=== PATIENT | male | born 1930 | race Caucasian/White ===

== ENCOUNTER 2017-02-07 19:21 | Emergency (ER) | payer MEDICARE, BC ==
--- NOTE | 2017-02-07 21:06 | EDM.PDOC ---
ED HISTORY OF PRESENT ILLNESS - General Chief Complaint: Chest Pain Stated Complaint: CHEST PAINS Time Seen by Provider: 02/07/17 20:02 Source: Reports: Patient History Limitations: Reports: No limitations - History of Present Illness INITIAL COMMENTS - FREE TEXT/NARRATIVE: History of present illness: [6-year-old male presenting with epigastric pressure of about 8 hours duration with belching. He had no shortness of breath nausea vomiting or diaphoresis with this. Here in the emergency room he is asymptomatic and has resolved but he thought he should have it checked as he does have a cardiac history. He has sublingual nitroglycerin but did not use it. He's had no fevers chills sweats cough or cold symptoms of late no constipation diarrhea or dysuria.] Review of systems: As per history of present illness and below otherwise all systems reviewed and negative. Past medical history: As per history of present illness and as reviewed below otherwise noncontributory. Surgical history: As per history of present illness and as reviewed below otherwise noncontributory. Social history: No reported history of drug or alcohol abuse. Family history: As per history of present illness and as reviewed below otherwise noncontributory. Physical exam: HEENT: Atraumatic, normocephalic, pupils reactive, negative for conjunctival pallor or scleral icterus, mucous membranes moist, throat clear, neck supple, nontender, trachea midline. Lungs: Clear to auscultation, breath sounds equal bilaterally, chest nontender. Heart: S1S2, IRR, negative for clicks, rubs, or JVD. Abdomen: Soft, nondistended, nontender. Negative for masses or hepatosplenomegaly. Negative for costovertebral tenderness. Pelvis: Stable nontender. Genitourinary: Deferred. Rectal: Deferred. Extremities: Atraumatic, negative for cords or calf pain. Neurovascular unremarkable. Neuro: Awake, alert, oriented. Motor and sensory unremarkable throughout. Exam nonfocal. Diagnostics: [EKG shows A. fib with a controlled rate. There is no current of injury or ischemia noted troponin is negative CBC and complete panel panel were also obtained and nothing significant was seen. Chest x-ray shows I believe evidence for mild cardiomegaly and chronic changes so nothing acute.] Therapeutics: [] Impression: [Epigastric abdominal pain resolved I doubt this is cardiac equivalent] Plan: [Patient was discharged on in good condition. I discussed with him and reviewed with him the use of his sublingual nitroglycerin.] Definitive disposition and diagnosis as appropriate pending reevaluation and review of above. - Related Data Allergies/ADRs: Allergies Allergy/AdvReac Type Severity Reaction Status Date / Time No Known Allergies Allergy Verified 02/07/17 19:33 Home Meds: Home Meds Allopurinol [Allopurinol] 100 mg PO DAILY 05/17/14 [History] Finasteride [Finasteride] 5 mg PO DAILY 05/17/14 [History] Furosemide [Furosemide] 10 mg PO DAILY 05/17/14 [History] Lisinopril [Lisinopril] 10 mg PO DAILY 05/17/14 [History] Omeprazole [Omeprazole] 20 mg PO BEDTIME 05/17/14 [History] Pravastatin Sodium [Pravastatin Sodium] 80 mg PO BEDTIME 05/17/14 [History] Warfarin [Coumadin] 2.5 mg PO DAILY 05/17/14 [History] Nitroglycerin [Nitrostat] 0.4 mg SL ASDIRECTED PRN 08/16/14 [History] Pindolol [Visken] 10 mg PO BID 08/16/14 [History] Past Medical History HEENT History: Reports: Cataract, Hard of hearing, Other (see below) Other HEENT History: blood vein broke in left eye - getting an injection in eye at [place] Cardiovascular History: Reports: Arrhythmia, Bypass, CAD, High cholesterol, Hypertension, [place], Other (see below) Other Cardiovascular History: chronic ischemic heart disease Respiratory History: Reports: Other (see below) Other Respiratory History: asbestos exposure Genitourinary History: Reports: Prostate disorder, Other (see below) Other Genitourinary History: pain with movement in right kidney area for past 6 months Musculoskeletal History: Reports: Fracture, Gout, Osteoarthritis Neurological History: Reports: Neuropathy, diabetic Endocrine/Metabolic History: Reports: Diabetes, type II Hematologic History: Reports: Anticoagulation therapy Oncologic (Cancer) History: Reports: Basal cell carcinoma Dermatologic History: 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 - Past Surgical History HEENT Surgical History: Reports: Cataract surgery Cardiovascular Surgical History: Reports: Coronary artery bypass, Other (see below) Other Cardiovascular Surgeries/Procedures: CABG x4 GI Surgical History: Reports: Cholecystectomy Musculoskeletal Surgical History: Reports: Hip replacement, Other (see below) Other Musculoskeletal Surgeries/Procedures:: tendonitis right hip Social & Family History - Family History Family Medical History: Noncontributory - Tobacco Use Smoking Status *Q: Never Smoker - Caffeine Use Caffeine Use: Reports: None - Alcohol Use Days Per Week of Alcohol Use: 0 - Recreational Drug Use Recreational Drug Use: No - Living Situation & Occupation Living situation: Reports: Occupation: retired (lives with , son is nearby.) ED ROS GENERAL - Review of Systems Review Of Systems: ROS reveals no pertinent complaints other than HPI. ED EXAM, GENERAL - Physical Exam Exam: See Below Course - Vital Signs Last Recorded V/S: Last Vital Signs Temp 37.1 C 02/07/17 19:46 Pulse Resp 12 02/07/17 19:47 BP 186/99 H 02/07/17 19:47 Pulse Ox 95 02/07/17 19:47 - Orders/Labs/Meds Orders: Active Orders 24 hr Category Date Time Status EKG Documentation Completion [RC] ASDIRECTED Care 02/07/17 20:04 Active Chest 1V Frontal [CR] Stat Exams 02/07/17 20:03 Taken EKG 12 Lead [EK] Stat Ther 02/07/17 20:04 Ordered Labs: Laboratory Tests 02/07/17 02/07/17 02/07/17 Range/Units 20:12 20:12 20:12 WBC 6.8 (4.5-11.0) K/uL RBC 4.32 (4.30-5.90) M/uL Hgb 13.4 (12.0-15.0) g/dL Hct 41.2 (40.0-54.0) % MCV 95 (80-98) fL MCH 31 (27-31) pg MCHC 33 (32-36) % Plt Count 149 L (150-400) K/uL Neut % (Auto) 58 (36-66) % Lymph % (Auto) 30 (24-44) % [place] % (Auto) 10 H (2-6) % Eos % (Auto) 2 (2-4) % Baso % (Auto) 1 (0-1) % PT 28.0 H (9.5-12.0) sec INR 2.57 H (0.80-1.20) Sodium 139 L (140-148) mmol/L Potassium 4.7 (3.6-5.2) mmol/L Chloride 104 (100-108) mmol/L Carbon Dioxide 26 (21-32) mmol/L Anion Gap 13.7 (5.0-14.0) mmol/L BUN 28 H (7-18) mg/dL Creatinine 1.3 (0.8-1.3) mg/dL Est Cr Clr Drug Dosing 37.49 mL/min Estimated GFR (MDRD) 52 L (>60) Glucose 119 H (74-106) mg/dL Calcium 8.4 L (8.5-10.1) mg/dL Total Bilirubin 0.4 (0.2-1.0) mg/dL AST 21 (15-37) U/L ALT 32 (12-78) U/L Alkaline Phosphatase 58 (46-116) U/L Troponin I < 0.017 (0.000-0.056) ng/mL Total Protein 6.6 (6.4-8.2) g/dL Albumin 3.9 (3.4-5.0) g/dL Globulin 2.7 (2.3-3.5) g/dL Albumin/Globulin Ratio 1.4 (1.2-2.2) Urine Color Urine Appearance Urine pH (4.5-8.0) Ur Specific [place] (1.008-1.030) Urine Protein (NEGATIVE) mg/dL Urine Glucose (UA) (NEGATIVE) mg/dL Urine Ketones (NEGATIVE) mg/dL Urine Occult Blood (NEGATIVE) Urine Nitrite (NEGAITVE) Urine Bilirubin (NEGATIVE) Urine Urobilinogen (NORMAL) mg/dL Ur Leukocyte Esterase (NEGATIVE) Urine RBC (0-5) Urine WBC (0-5) Ur Epithelial Cells Amorphous Sediment Urine Bacteria Urine Mucus 02/07/17 Range/Units 20:36 WBC (4.5-11.0) K/uL RBC (4.30-5.90) M/uL Hgb (12.0-15.0) g/dL Hct (40.0-54.0) % MCV (80-98) fL MCH (27-31) pg MCHC (32-36) % Plt Count (150-400) K/uL Neut % (Auto) (36-66) % Lymph % (Auto) (24-44) % [place] % (Auto) (2-6) % Eos % (Auto) (2-4) % Baso % (Auto) (0-1) % PT (9.5-12.0) sec INR (0.80-1.20) Sodium (140-148) mmol/L Potassium (3.6-5.2) mmol/L Chloride (100-108) mmol/L Carbon Dioxide (21-32) mmol/L Anion Gap (5.0-14.0) mmol/L BUN (7-18) mg/dL Creatinine (0.8-1.3) mg/dL Est Cr Clr Drug Dosing mL/min Estimated GFR (MDRD) (>60) Glucose (74-106) mg/dL Calcium (8.5-10.1) mg/dL Total Bilirubin (0.2-1.0) mg/dL AST (15-37) U/L ALT (12-78) U/L Alkaline Phosphatase (46-116) U/L Troponin I (0.000-0.056) ng/mL Total Protein (6.4-8.2) g/dL Albumin (3.4-5.0) g/dL Globulin (2.3-3.5) g/dL Albumin/Globulin Ratio (1.2-2.2) Urine Color Yellow Urine Appearance Clear Urine pH 6.0 (4.5-8.0) Ur Specific [place] 1.020 (1.008-1.030) Urine Protein Negative (NEGATIVE) mg/dL Urine Glucose (UA) Normal (NEGATIVE) mg/dL Urine Ketones Negative (NEGATIVE) mg/dL Urine Occult Blood Moderate (NEGATIVE) Urine Nitrite Negative (NEGAITVE) Urine Bilirubin Negative (NEGATIVE) Urine Urobilinogen Normal (NORMAL) mg/dL Ur Leukocyte Esterase Negative (NEGATIVE) Urine RBC 5-10 H (0-5) Urine WBC 5-10 H (0-5) Ur Epithelial Cells Few Amorphous Sediment Not seen Urine Bacteria Moderate Urine Mucus Few Departure - Departure Time of Disposition: 21:05 Disposition: Home, Self-Care 01 Condition: good Clinical Impression: Epigastric abdominal pain Forms: ED Department Discharge Additional Instructions: Please remember to use her sublingual nitroglycerin for any chest pain or pressure that you have infusion postoperatively and her pain does not resolve please return to the restroom. Follow up with her doctor as planned and were always happy to see if you have any problems or concerns - My Orders Last 24 Hours: My Active Orders 02/07/17 20:03 Chest 1V Frontal [CR] Stat 02/07/17 20:04 EKG Documentation Completion [RC] ASDIRECTED EKG 12 Lead [EK] Stat - Assessment/Plan Last 24 Hours: My Active Orders 02/07/17 20:03 Chest 1V Frontal [CR] Stat 02/07/17 20:04 EKG Documentation Completion [RC] ASDIRECTED EKG 12 Lead [EK] Stat
[2017-02-07 21:23] VITALS: BP 157/94
--- NOTE | 2017-02-08 09:26 | CR ---
Portable chest Comparison: May 2014. Intact sternal wires are demonstrated. There is mild cardiac enlargement. The vascular structures ar e within normal limits. There are no infiltrates or effusions. There is calcified pleural plaque on the left which is unchanged. Impression: 1. Stable exam. No acute findings.
== END 2017-02-07 21:24 | disposition home or self-care (01) ==
LOC: JP.ED 19:21
DX: R10.13 Epigastric pain (principal); I25.810 Atherosclerosis of coronary artery bypass graft(s) without angina pectoris; E78.00 Pure hypercholesterolemia, unspecified; I10 Essential (primary) hypertension; I25.2 Old myocardial infarction; E11.40 Type 2 diabetes mellitus with diabetic neuropathy, unspecified; Z79.01 Long term (current) use of anticoagulants; Z79.899 Other long term (current) drug therapy; Z98.49 Cataract extraction status, unspecified eye; Z90.49 Acquired absence of other specified parts of digestive tract
CPT/HCPCS: 36415; 71010; 71010-26; 80053; 81001; 84484; 85025; 85610; 93005; 93010; 99283; 99284-25

== ENCOUNTER 2017-12-07 19:56 | Inpatient (IN) | payer MEDICARE, BC ==
[2017-12-07] MEDS ORDERED: Sodium Chloride 0.9% 1,000 ML IV SCH ×4 (20:00→23:05)
[2017-12-07] MEDS ORDERED: Ondansetron 4 MG/2 ML SDV IVPUSH ONE (20:00)
--- NOTE | 2017-12-07 20:44 | EDM.PDOC ---
ED HPI GENERAL MEDICAL PROBLEM - General Chief Complaint: Respiratory Problem Stated Complaint: CONGESTED Time Seen by Provider: 12/07/17 20:39 Source of Information: Reports: Patient, EMS, Family History Limitations: Reports: No Limitations - History of Present Illness INITIAL COMMENTS - FREE TEXT/NARRATIVE: pt is very congested sounding. He is vomiting and this seemes to be stimulated with the coughing. He smells of urine incontinence. Onset: Gradual, Other (Pt has been sick for the past 2-3 days. He thinks his ankle swelling is about the same. ) Duration: Day(s): Location: Reports: Chest, Other (low o2 sats. ) Associated Symptoms: Reports: Cough, Fever/Chills, Nausea/Vomiting, Shortness of Breath, Other (Pt is very wheezy. ) - Related Data Allergies Allergy/AdvReac Type Severity Reaction Status Date / Time No Known Allergies Allergy Verified 02/07/17 19:33 Home Meds: Home Meds Allopurinol [Allopurinol] 100 mg PO DAILY 05/17/14 [History] Finasteride [Finasteride] 5 mg PO DAILY 05/17/14 [History] Furosemide [Furosemide] 20 mg PO DAILY 05/17/14 [History] Lisinopril [Lisinopril] 10 mg PO DAILY 05/17/14 [History] Omeprazole [Omeprazole] 20 mg PO BEDTIME 05/17/14 [History] Pravastatin Sodium [Pravastatin Sodium] 80 mg PO BEDTIME 05/17/14 [History] Warfarin [Coumadin] 2.5 mg PO DAILY 05/17/14 [History] Nitroglycerin [Nitrostat] 0.4 mg SL ASDIRECTED PRN 08/16/14 [History] Pindolol [Visken] 10 mg PO BID 08/16/14 [History] Carbidopa/Levodopa [Carbidopa-Levodopa 10-100] 1 tab PO DAILY 12/07/17 [History] Past Medical History HEENT History: Reports: Cataract, Hard of Hearing, Other (See Below) Other HEENT History: blood vein broke in left eye - getting an injection in eye at [place] Cardiovascular History: Reports: Arrhythmia, Bypass, CAD, High Cholesterol, Hypertension, [place], Other (See Below) Other Cardiovascular History: chronic ischemic heart disease Respiratory History: Reports: Other (See Below) Other Respiratory History: asbestos exposure Genitourinary History: Reports: Prostate Disorder, Other (See Below) Other Genitourinary History: pain with movement in right kidney area for past 6 months Musculoskeletal History: Reports: Fracture, Gout, Osteoarthritis Neurological History: Reports: Neuropathy, Diabetic Endocrine/Metabolic History: Reports: Diabetes, Type II Hematologic History: Reports: Anticoagulation Therapy Oncologic (Cancer) History: Reports: Basal Cell Carcinoma Dermatologic History: 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 - Past Surgical History HEENT Surgical History: Reports: Cataract Surgery Cardiovascular Surgical History: Reports: Coronary Artery Bypass, Other (See Below) Musculoskeletal Surgical History: Reports: Hip Replacement, Other (See Below) Social & Family History - Family History Family Medical History: Noncontributory - Tobacco Use Smoking Status *Q: Never Smoker - Caffeine Use Caffeine Use: Reports: None - Alcohol Use Days Per Week of Alcohol Use: 0 - Recreational Drug Use Recreational Drug Use: No - Living Situation & Occupation Living situation: Reports: Occupation: Retired ED ROS GENERAL - Review of Systems Review Of Systems: See Below Constitutional: Reports: No Symptoms HEENT: Reports: No Symptoms Respiratory: Reports: Shortness of Breath, Wheezing Cardiovascular: Reports: No Symptoms Endocrine: Reports: No Symptoms GI/Abdominal: Reports: Nausea, Vomiting : Reports: No Symptoms Musculoskeletal: Reports: No Symptoms ED EXAM, GENERAL - Physical Exam Exam: See Below Free Text/Narrative:: pt arrived with marked chest congestion. He is vomiting bile like material. His vomiting is stimulated by the coughing. He has gotten progressively weaker as the day has progressed. Exam Limited By: Respiratory Distress General Appearance: Alert, Moderate Distress, Other (pt has been very rattlly and has been vomiting. ) Ears: Normal TMs Nose: Normal Inspection Throat/Mouth: Normal Inspection Head: Atraumatic Neck: Normal Inspection Respiratory/Chest: Decreased Breath Sounds, Rales, Rhonchi, Wheezing, Other (o2 sats were in the low 80s. ) Cardiovascular: Regular Rate, Rhythm GI/Abdominal: Soft, Non-Tender (Male) Exam: Deferred Rectal (Males) Exam: Deferred Back Exam: Normal Inspection Extremities: Pedal Edema, Other ( Pt has plus 2-3 pitting edema. ) Neurological: Alert, Oriented, Normal Cognition, Other ( Pt is vague with her answers. ) Psychiatric: Flat Affect Course - Vital Signs Last Recorded V/S: Last Vital Signs Temp 37.1 C 12/07/17 20:47 Pulse 100 12/07/17 20:47 Resp 20 12/07/17 20:47 BP 172/86 H 12/07/17 20:47 Pulse Ox 93 L 12/07/17 20:47 - Orders/Labs/Meds Orders: Active Orders 24 hr Category Date Time Status Chest 1V Frontal [CR] Stat Exams 12/07/17 19:59 Taken CULTURE BLOOD [BC] Urgent Lab 12/07/17 20:40 Received CULTURE BLOOD [BC] Urgent Lab 12/07/17 20:55 Received UA W/MICROSCOPIC [URIN] Urgent Lab 12/07/17 20:30 Received Sodium Chloride 0.9% [Normal Saline] 1,000 ml Med 12/07/17 21:15 Active IV ASDIRECTED cefTRIAXone [Rocephin] 1 gm Med 12/07/17 21:30 Ordered Sodium Chloride 0.9% [Normal Saline] 50 ml IV ONETIME Blood Culture x2 Reflex Set [OM.PC] Urgent Oth 12/07/17 20:39 Ordered Medication Orders Sodium Chloride (Normal Saline) 1,000 mls @ 500 mls/hr IV ASDIRECTED [facility] Labs: Laboratory Tests 12/07/17 12/07/17 12/07/17 Range/Units 20:05 20:11 20:11 WBC 8.2 (4.5-11.0) K/uL RBC 4.33 (4.30-5.90) M/uL Hgb 14.2 (12.0-15.0) g/dL Hct 42.0 (40.0-54.0) % MCV 97 (80-98) fL MCH 33 H (27-31) pg MCHC 34 (32-36) % Plt Count 148 L (150-400) K/uL Neut % (Auto) 72 H (36-66) % Lymph % (Auto) 20 L (24-44) % [place] % (Auto) 7 H (2-6) % Eos % (Auto) 0 L (2-4) % Baso % (Auto) 0 (0-1) % PT (9.5-12.0) sec INR (0.80-1.20) Puncture Site Rt.radial ABG pH 7.450 (7.350-7.450) ABG pCO2 29.8 L (35.0-42.0) mmHg ABG pO2 62.8 L (75.0-100.0) mmHg ABG HCO3 20.4 L (22.0-26.0) mmol/L ABG Total CO2 17.8 L (23.0-27.0) mmol/L ABG O2 Saturation 91.8 L (95.0-98.0) % ABG O2 Content 17.8 (15.0-23.0) %vol ABG Base Excess -2.0 mm/L ABG Hemoglobin 14.0 (13.5-18.0) g/dL ABG Oxyhemoglobin 90.4 % ABG Carboxyhemoglobin 0.8 (0.0-1.6) % ABG Methemoglobin 0.7 % Portillo Test Passed O2 Delivery Device Room air Oxygen Flow Rate 2 L Sodium 139 L (140-148) mmol/L Potassium 4.8 (3.6-5.2) mmol/L Chloride 101 (100-108) mmol/L Carbon Dioxide 24 (21-32) mmol/L Anion Gap 18.8 H (5.0-14.0) mmol/L BUN 26 H (7-18) mg/dL Creatinine 1.2 (0.8-1.3) mg/dL Est Cr Clr Drug Dosing 44.19 mL/min Estimated GFR (MDRD) 57 L (>60) Glucose 202 H (74-106) mg/dL Lactic Acid (0.4-2.0) mmol/L Calcium 9.2 (8.5-10.1) mg/dL Total Bilirubin 1.1 H D (0.2-1.0) mg/dL AST 31 (15-37) U/L ALT 16 (12-78) U/L Alkaline Phosphatase 68 (46-116) U/L NT-Pro-B Natriuret Pep (5-450) pg/mL Total Protein 6.8 (6.4-8.2) g/dL Albumin 3.8 (3.4-5.0) g/dL Globulin 3.0 (2.3-3.5) g/dL Albumin/Globulin Ratio 1.3 (1.2-2.2) 12/07/17 12/07/17 12/07/17 Range/Units 20:11 20:17 20:46 WBC (4.5-11.0) K/uL RBC (4.30-5.90) M/uL Hgb (12.0-15.0) g/dL Hct (40.0-54.0) % MCV (80-98) fL MCH (27-31) pg MCHC (32-36) % Plt Count (150-400) K/uL Neut % (Auto) (36-66) % Lymph % (Auto) (24-44) % [place] % (Auto) (2-6) % Eos % (Auto) (2-4) % Baso % (Auto) (0-1) % PT 26.5 H (9.5-12.0) sec INR 2.39 H (0.80-1.20) Puncture Site ABG pH (7.350-7.450) ABG pCO2 (35.0-42.0) mmHg ABG pO2 (75.0-100.0) mmHg ABG HCO3 (22.0-26.0) mmol/L ABG Total CO2 (23.0-27.0) mmol/L ABG O2 Saturation (95.0-98.0) % ABG O2 Content (15.0-23.0) %vol ABG Base Excess mm/L ABG Hemoglobin (13.5-18.0) g/dL ABG Oxyhemoglobin % ABG Carboxyhemoglobin (0.0-1.6) % ABG Methemoglobin % Portillo Test O2 Delivery Device Oxygen Flow Rate L Sodium (140-148) mmol/L Potassium (3.6-5.2) mmol/L Chloride (100-108) mmol/L Carbon Dioxide (21-32) mmol/L Anion Gap (5.0-14.0) mmol/L BUN (7-18) mg/dL Creatinine (0.8-1.3) mg/dL Est Cr Clr Drug Dosing mL/min Estimated GFR (MDRD) (>60) Glucose (74-106) mg/dL Lactic Acid 2.5 H (0.4-2.0) mmol/L Calcium (8.5-10.1) mg/dL Total Bilirubin (0.2-1.0) mg/dL AST (15-37) U/L ALT (12-78) U/L Alkaline Phosphatase (46-116) U/L NT-Pro-B Natriuret Pep 3357 H (5-450) pg/mL Total Protein (6.4-8.2) g/dL Albumin (3.4-5.0) g/dL Globulin (2.3-3.5) g/dL Albumin/Globulin Ratio (1.2-2.2) Meds: Medications Generic Name Dose Route Start Last Admin Trade Name Freq PRN Reason Stop Dose Admin Sodium Chloride 1,000 mls @ 500 mls/hr 12/07/17 21:15 Normal Saline IV ASDIRECTED SANG Discontinued Medications Generic Name Dose Route Start Last Admin Trade Name Freq PRN Reason Stop Dose Admin Sodium Chloride 1,000 mls @ 500 mls/hr 12/07/17 20:00 Normal Saline IV ASDIRECTED SANG Sodium Chloride 1,000 mls @ 150 mls/hr 12/07/17 20:45 12/07/17 20:50 Normal Saline IV 150 mls/hr ASDIRECTED SANG Administration Ondansetron HCl 4 mg 12/07/17 20:00 12/07/17 20:48 Zofran IVPUSH 12/07/17 20:01 4 mg ONETIME ONE Administration - Re-Assessments/Exams Free Text/Narrative Re-Assessment/Exam: 12/07/17 21:35 pt had neg influ a and b. his wbc is not sig elevated. His lactic acid is borderline. He has an elevated bnp so it is difficult to give him a large bolus of fluid rapidly. His vital signs are staying good, His chest xray revealed a patchy pneumonia. Blood cultures were drawn. Departure - Departure Time of Disposition: 21:38 Disposition: Admitted As Inpatient 67 Condition: Fair Clinical Impression: Bilateral pneumonia, Elevated brain natriuretic peptide (BNP) level, Elevated lactic acid level - Discharge Information Referrals: PCP,None [Primary Care Provider] - Forms: ED Department Discharge Care Plan Goals: admit to [facility] - My Orders Last 24 Hours: My Active Orders 12/07/17 19:59 Chest 1V Frontal [CR] Stat 12/07/17 20:30 UA W/MICROSCOPIC [URIN] Urgent 12/07/17 20:39 Blood Culture x2 Reflex Set [OM.PC] Urgent 12/07/17 20:40 CULTURE BLOOD [BC] Urgent 12/07/17 20:55 CULTURE BLOOD [BC] Urgent 12/07/17 21:15 Sodium Chloride 0.9% [Normal Saline] 1,000 ml IV ASDIRECTED 12/07/17 21:30 cefTRIAXone [Rocephin] 1 gm Sodium Chloride 0.9% [Normal Saline] 50 ml IV ONETIME - Assessment/Plan Last 24 Hours: My Active Orders 12/07/17 19:59 Chest 1V Frontal [CR] Stat 12/07/17 20:30 UA W/MICROSCOPIC [URIN] Urgent 12/07/17 20:39 Blood Culture x2 Reflex Set [OM.PC] Urgent 12/07/17 20:40 CULTURE BLOOD [BC] Urgent 12/07/17 20:55 CULTURE BLOOD [BC] Urgent 12/07/17 21:15 Sodium Chloride 0.9% [Normal Saline] 1,000 ml IV ASDIRECTED 12/07/17 21:30 cefTRIAXone [Rocephin] 1 gm Sodium Chloride 0.9% [Normal Saline] 50 ml IV ONETIME
[2017-12-07] MEDS ORDERED: cefTRIAXone 1 GM in Sodium Chloride 0.9% 50 ML IV ONE (21:30)
[2017-12-07] MEDS ORDERED: Furosemide 40 MG/4 ML VIAL IVPUSH ONE (22:17)
[2017-12-07] MEDS ORDERED: methylPREDNISolone Sodium Succinate 125 MG/2 ML SDV IVPUSH ONE (22:24)
[2017-12-07] MEDS ORDERED: Albuterol/Ipratropium 3.0-0.5 MG/3 ML Neb Soln NEB ONE (22:24)
[2017-12-07] MEDS ORDERED: Furosemide 100 MG/10 ML SDV ONE (22:29)
[2017-12-07] MEDS ORDERED: Ondansetron 4 MG Tab.DIS PO PRN (23:05)
[2017-12-07] MEDS ORDERED: Morphine 2 MG/ML Syringe IVPUSH PRN (23:05)
[2017-12-07] MEDS ORDERED: Bisacodyl 5 MG Tab PO PRN (23:05)
[2017-12-07] MEDS ORDERED: Nitroglycerin 0.4 MG Tab.SL SL PRN (23:05)
[2017-12-07] MEDS ORDERED: Docusate Sodium 100 MG Cap PO PRN (23:05)
[2017-12-07] MEDS ORDERED: oxyCODONE 5 MG Tab PO PRN (23:05)
[2017-12-07] MEDS ORDERED: Albuterol 0.083% 2.5 MG/3 ML Neb Soln NEB PRN (23:05)
[2017-12-07] MEDS ORDERED: LORazepam 2 MG/ML MDV IV PRN (23:05)
[2017-12-07] MEDS ORDERED: Acetaminophen 325 MG Tab PO PRN (23:05)
[2017-12-07] MEDS ORDERED: Melatonin 3 MG Tab PO PRN (23:05)
--- NOTE | 2017-12-07 23:11 | PCM.HP ---
H&P History of Present Illness - General Admit Problem/Dx: Admission Diagnosis/Problem Admission Diagnosis/Problem Pneumonia Source of Information: EMS, Family (Daughter), Provider History Limitations: Reports: No Limitations - History of Present Illness Initial Comments - Free Text/Narative: pt is very congested sounding. He is vomiting and this seemes to be stimulated with the coughing. He smells of urine incontinence. Onset: Gradual, Other (Pt has been sick for the past 2-3 days. He thinks his ankle swelling is about the same. ) Duration: Day(s): Location: Reports: Chest, Other (low o2 sats. ) Associated Symptoms: Reports: Cough, Fever/Chills, Nausea/Vomiting, Shortness of Breath, Other (Pt is very wheezy. ) 12/07/17 21:35 pt had neg influenza A and B. his wbc is not significantly elevated. His lactic acid is borderline. He has an elevated bnp so it is difficult to give him a large bolus of fluid rapidly. His vital signs are staying good, His chest xray revealed a patchy pneumonia. Blood cultures were drawn. Onset of Symptoms: Reports: Gradual Duration of Symptoms: Reports: Day(s): (2 to 3 days), Getting Worse Location: Reports: Generalized Severity: Moderate Improves with: Reports: None Worsens with: Reports: None - Related Data Allergies/Adverse Reactions: Allergies Allergy/AdvReac Type Severity Reaction Status Date / Time strawberry Allergy Cannot Verified 12/07/17 23:45 Remember Home Medications: Home Meds Allopurinol [Allopurinol] 100 mg PO DAILY 05/17/14 [History] Finasteride [Finasteride] 5 mg PO DAILY 05/17/14 [History] Furosemide [Furosemide] 20 mg PO DAILY 05/17/14 [History] Lisinopril [Lisinopril] 10 mg PO DAILY 05/17/14 [History] Omeprazole [Omeprazole] 20 mg PO BEDTIME 05/17/14 [History] Pravastatin Sodium [Pravastatin Sodium] 80 mg PO BEDTIME 05/17/14 [History] Warfarin [Coumadin] 2.5 mg PO DAILY 05/17/14 [History] Nitroglycerin [Nitrostat] 0.4 mg SL ASDIRECTED PRN 08/16/14 [History] Pindolol [Visken] 10 mg PO BID 08/16/14 [History] Carbidopa/Levodopa [Carbidopa-Levodopa 10-100] 1 tab PO DAILY 12/07/17 [History] Past Medical History HEENT History: Reports: Cataract, Hard of Hearing, Other (See Below) Other HEENT History: blood vein broke in left eye - getting an injection in eye at [facility] Cardiovascular History: Reports: Arrhythmia, Bypass, CAD, High Cholesterol, Hypertension, DC, Other (See Below) Other Cardiovascular History: chronic ischemic heart disease Respiratory History: Reports: Other (See Below) Other Respiratory History: asbestos exposure Genitourinary History: Reports: Prostate Disorder, Other (See Below) Other Genitourinary History: pain with movement in right kidney area for past 6 months Musculoskeletal History: Reports: Fracture, Gout, Osteoarthritis Neurological History: Reports: Neuropathy, Diabetic Endocrine/Metabolic History: Reports: Diabetes, Type II Hematologic History: Reports: Anticoagulation Therapy Oncologic (Cancer) History: Reports: Basal Cell Carcinoma Dermatologic History: 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 - Past Surgical History HEENT Surgical History: Reports: Cataract Surgery Cardiovascular Surgical History: Reports: Coronary Artery Bypass, Other (See Below) Musculoskeletal Surgical History: Reports: Hip Replacement, Other (See Below) Social & Family History - Family History Family Medical History: Noncontributory - Tobacco Use Smoking Status *Q: Never Smoker - Caffeine Use Caffeine Use: Reports: None - Alcohol Use Days Per Week of Alcohol Use: 0 - Recreational Drug Use Recreational Drug Use: No - Living Situation & Occupation Living situation: Reports: (lives with Kymberly in [place], [place]. His daughter lives in [place], [place].) Occupation: Retired H&P Review of Systems - Review of Systems: Review Of Systems: See Below General: Reports: Fever, Chills, Weakness, Fatigue HEENT: Reports: No Symptoms Pulmonary: Reports: Shortness of Breath, Wheezing, Pleuritic Chest Pain, Cough, Sputum Cardiovascular: Reports: No Symptoms Gastrointestinal: Reports: No Symptoms Genitourinary: Reports: Incontinence Musculoskeletal: Reports: No Symptoms Skin: Reports: Pallor Psychiatric: Reports: No Symptoms Neurological: Reports: Pre-Existing Deficit, Weakness Hematologic/Lymphatic: Reports: No Symptoms Immunologic: Reports: No Symptoms Exam - Exam Exam: See Below - Vital Signs Vital Signs: Last Vital Signs Temp 37.1 C 12/07/17 20:47 Pulse 123 H 12/07/17 22:18 Resp 18 12/07/17 22:18 BP 165/85 H 12/07/17 22:27 Pulse Ox 92 L 12/07/17 22:18 Weight: 83.915 kg - Exam Quality Assessment: Supplemental Oxygen General: Alert, Cooperative, Mild Distress HEENT: PERRLA, Conjunctiva Clear, EACs Clear, EOMI, Mucosa Moist & [place], Normal Nasal Septum, Posterior Pharynx Clear, Pupils Equal, Pupils Reactive, TMs Clear Neck: Supple, Trachea Midline Lungs: Decreased Breath Sounds, Crackles, Rales Cardiovascular: Regular Rate, Regular Rhythm, Normal S1, Normal S2 GI/Abdominal Exam: Normal Bowel Sounds, Soft, Non-Tender, No Organomegaly, No Distention, No Abnormal Bruit, No Mass, Pelvis Stable (Male) Exam: Deferred Rectal (Males) Exam: Deferred Back Exam: Normal Inspection, Full Range of Motion, NT Extremities: Normal Inspection, Normal Range of Motion, Non-Tender, No Pedal Edema, Normal Capillary Refill Skin: Warm, Dry, Intact Neurological: Strength Equal Bilateral Neuro Extensive - Mental Status: Normal Mood/Affect Neuro Extensive - Motor, Sensory, Reflexes: Motor/Sensory Deficits Psychiatric: Normal Affect, Normal Mood - Patient Data Result Diagrams: 12/07/17 20:11 12/07/17 20:11 *Q Meaningful Use (ADM) - VTE *Q VTE Criteria *Q: - Stroke *Q Stroke Criteria *Q: - AMI *Q AMI Criteria *Q: - Problem List (1) Bilateral pneumonia SNOMED Code(s): 612295845 ICD Code: J18.9 - PNEUMONIA, UNSPECIFIED ORGANISM Status: Acute Priority : High Current Visit: Yes Qualifiers: Lung location: unspecified part of lung (2) Elevated brain natriuretic peptide (BNP) level SNOMED Code(s): 235403177 ICD Code: R79.89 - OTHER SPECIFIED ABNORMAL FINDINGS OF BLOOD CHEMISTRY Status: Acute Priority: High Current Visit: Yes (3) Elevated lactic acid level SNOMED Code(s): 4341387 ICD Code: R79.89 - OTHER SPECIFIED ABNORMAL FINDINGS OF BLOOD CHEMISTRY Status: Acute Priority: High Current Visit: Yes Problem List Initiated/Reviewed/Updated: Yes Orders Last 24hrs: Active Orders 24 hr Category Date Time Status Patient Status Manage Transfer [TRANSFER] Routine ADT 12/07/17 22:26 Active RT Aerosol Therapy [RC] ASDIRECTED Care 12/07/17 22:24 Active Resuscitation Status Routine Resus Stat 12/07/17 22:28 Ordered Medication Orders Sodium Chloride (Normal Saline) 1,000 mls @ 500 mls/hr IV ASDIRECTED [facility] Assessment/Plan Comment:: Assessment/Plan Comment:: ASSESSMENT AND PLAN - Bilateral pneumonia with hypoxic respiratory failure -He is hypoxic and requiring supplemental oxygen and not safe for outpatient management. No fevers at this time. No recent antibiotics. -IV Rocephin 1 gram every 24 hours -IV Zithromax 500mg every 24 hours -IV fluid bolus followed by continuous infusion overnight Normal Saline 100ml/hr -Sputum culture pending -Supplement oxygen -Scheduled and as needed nebulizers -IV Solu-medrol 125mg now and 62.5 mg every 8 hours starting tomorrow -telemetry -speciality mattress for fragile skin Essential hypertension, CAD- blood pressure currently normal but will need to be monitored closely with active infection. Usual medications will be continued unless blood pressure trends down A-Fib -Coumadin 2.5mg po daily -monitor INR/PT Maintenance issues - - DVT prophylaxis - Coumadin 2.5mg po daily - GI prophylaxis - IV Protonix 40mg daily - Nutrition - regular diet - Reveles catheter - not indicated CODE STATUS - full code, family to re-assess in am, when Kymberly will be here. Admission justification - This patient will be admitted for inpatient services and is medically appropriate meeting medical necessity for inpatient admission as outlined in my documentation. I reasonably expect the patient will require inpatient services that span a period time over 2 midnights. I reasonably expect this patient to be discharged or transferred within 96 hours [facility]. Disposition - anticipate discharge home after the hospital stay Primary care physician - MD Karan Hospitalist: Adonis Dumont M.D.
[2017-12-07] MEDS ORDERED: Pantoprazole 40 MG Vial IVPUSH ONE (23:45)
[2017-12-08] MEDS: Azithromycin 500 MG in Sodium Chloride 0.9% 250 ML IV SCH ×2 (00:24→22:00)
[2017-12-08] MEDS: Albuterol/Ipratropium 3.0-0.5 MG/3 ML Neb Soln NEB SCH ×6 (04:59→22:00)
[2017-12-08] MEDS: methylPREDNISolone Sodium Succinate 125 MG/2 ML SDV IV SCH ×2 (05:00→14:52)
[2017-12-08] MEDS: Furosemide 20 MG Tab PO SCH (08:43)
[2017-12-08] MEDS: Lisinopril 10 MG Tab PO SCH (08:44)
[2017-12-08] MEDS: Finasteride 5 MG Tab PO SCH (08:44)
[2017-12-08] MEDS: Allopurinol 100 MG Tab PO SCH (08:44)
[2017-12-08] MEDS: Pindolol 10 MG Tab PO SCH ×2 (08:44→21:07)
[2017-12-08] MEDS: Carbidopa/Levodopa 10-100 MG Tab PO SCH ×3 (08:44→21:11)
[2017-12-08] MEDS ORDERED: Carbidopa/Levodopa 10-100 MG Tab PO SCH (09:00)
[2017-12-08] MEDS: Warfarin 2.5 MG Tab PO SCH (14:52)
--- NOTE | 2017-12-08 15:32 | PCM.PN ---
- General Info Date of Service: 12/08/17 Functional Status: Reports: Pain Controlled, Tolerating Diet - Review of Systems Pulmonary: Reports: Shortness of Breath Systems Review Comment:: No acute events overnight and has improved quite a bit. He is off supplemental oxygen. No complaints of chest pain or abdominal pain. No fevers this morning. He is weak but otherwise seems to be doing fairly well. - Patient Data Vitals - Most Recent: Last Vital Signs Temp 36.7 C 12/08/17 14:02 Pulse 72 12/08/17 14:02 Resp 18 12/08/17 14:02 BP 112/52 L 12/08/17 14:02 Pulse Ox 91 L 12/08/17 14:02 Weight - Most Recent: 83.915 kg I&O - Last 24 Hours: Intake & Output 12/08/17 12/08/17 12/08/17 06:59 14:59 22:59 Intake Total 710 790 Output Total 200 300 Balance 510 490 Lab Results Last 24 Hours: Laboratory Results - last 24 hr 12/08/17 12/08/17 12/08/17 Range/Units 02:12 05:10 05:11 WBC 8.0 (4.5-11.0) K/uL RBC 4.08 L (4.30-5.90) M/uL Hgb 13.2 (12.0-15.0) g/dL Hct 39.5 L (40.0-54.0) % MCV 97 (80-98) fL MCH 32 H (27-31) pg MCHC 33 (32-36) % Plt Count 123 L (150-400) K/uL Neut % (Auto) 83 H (36-66) % Lymph % (Auto) 12 L (24-44) % [place] % (Auto) 5 (2-6) % Eos % (Auto) 0 L (2-4) % Baso % (Auto) 0 (0-1) % Sodium 141 (140-148) mmol/L Potassium 4.1 (3.6-5.2) mmol/L Chloride 101 (100-108) mmol/L Carbon Dioxide 26 (21-32) mmol/L Anion Gap 14.3 H (5.0-14.0) mmol/L BUN 28 H (7-18) mg/dL Creatinine 1.3 (0.8-1.3) mg/dL Est Cr Clr Drug Dosing 37.47 mL/min Estimated GFR (MDRD) 52 L (>60) Glucose 184 H (74-106) mg/dL Lactic Acid 2.2 H (0.4-2.0) mmol/L Calcium 8.4 L (8.5-10.1) mg/dL C-Reactive Protein (0.0-0.3) mg/dL 12/08/17 Range/Units 05:11 WBC (4.5-11.0) K/uL RBC (4.30-5.90) M/uL Hgb (12.0-15.0) g/dL Hct (40.0-54.0) % MCV (80-98) fL MCH (27-31) pg MCHC (32-36) % Plt Count (150-400) K/uL Neut % (Auto) (36-66) % Lymph % (Auto) (24-44) % [place] % (Auto) (2-6) % Eos % (Auto) (2-4) % Baso % (Auto) (0-1) % Sodium (140-148) mmol/L Potassium (3.6-5.2) mmol/L Chloride (100-108) mmol/L Carbon Dioxide (21-32) mmol/L Anion Gap (5.0-14.0) mmol/L BUN (7-18) mg/dL Creatinine (0.8-1.3) mg/dL Est Cr Clr Drug Dosing mL/min Estimated GFR (MDRD) (>60) Glucose (74-106) mg/dL Lactic Acid (0.4-2.0) mmol/L Calcium (8.5-10.1) mg/dL C-Reactive Protein 4.62 H (0.0-0.3) mg/dL Med Orders - Current: Current Medications Acetaminophen (Tylenol) 650 mg PO Q4H PRN PRN Reason: Pain (Mild 1-3)/fever Last Admin: 12/08/17 00:22 Dose: 650 mg Albuterol (Proventil Neb Soln) 2.5 mg NEB Q4H PRN PRN Reason: Shortness of Breath Albuterol/Ipratropium (Duoneb 3.0-0.5 Mg/3 Ml) 3 ml NEB Q4H [facility] Last Admin: 12/08/17 14:20 Dose: 3 ml Allopurinol (Zyloprim) 100 mg PO DAILY [facility] Last Admin: 12/08/17 08:44 Dose: 100 mg Bisacodyl (Dulcolax) 5 mg PO DAILY PRN PRN Reason: Constipation Carbidopa/Levodopa (Sinemet 10-100 Mg) 1 tab PO TID [facility] Last Admin: 12/08/17 14:52 Dose: 1 tab Docusate Sodium (Colace) 100 mg PO BID PRN PRN Reason: Constipation Finasteride (Proscar) 5 mg PO DAILY [facility] Last Admin: 12/08/17 08:44 Dose: 5 mg Furosemide (Lasix) 20 mg PO DAILY [facility] Last Admin: 12/08/17 08:43 Dose: 20 mg Azithromycin 500 mg/ Sodium (Chloride) 250 mls @ 250 mls/hr IV Q24H [facility] Last Admin: 12/08/17 00:24 Dose: 250 mls/hr Ceftriaxone Sodium 1 gm/ (Sodium Chloride) 50 mls @ 100 mls/hr IV Q24H [facility] Insulin Aspart (Novolog) 0 unit SUBCUT QIDACANDBED [facility] PRN Reason: Protocol Lisinopril (Prinivil) 10 mg PO DAILY [facility] Last Admin: 12/08/17 08:44 Dose: 10 mg Lorazepam (Ativan) 0.5 - 1 mg IV Q6H PRN PRN Reason: Nausea/Vomiting Melatonin (Melatonin) 6 mg PO BEDTIME PRN PRN Reason: Insomnia Morphine Sulfate (Morphine) 2 mg IVPUSH Q2H PRN PRN Reason: Pain (severe 7-10) Nitroglycerin (Nitrostat) 0.4 mg SL ASDIRECTED PRN PRN Reason: Chest Pain Ondansetron HCl (Zofran Odt) 4 mg PO Q6H PRN PRN Reason: Nausea able to take PO Oxycodone HCl (Oxycodone) 5 mg PO Q4H PRN PRN Reason: Pain (moderate 4-6) Pantoprazole Sodium (Protonix) 40 mg PO BEDTIME [facility] Pindolol (Pindolol) 10 mg PO BID [facility] Last Admin: 12/08/17 08:44 Dose: 10 mg Pravastatin Sodium (Pravachol) 80 mg PO BEDTIME [facility] Warfarin Sodium (Coumadin) 2.5 mg PO DAILY@1300 [facility] Last Admin: 12/08/17 14:52 Dose: 2.5 mg Discontinued Medications Albuterol/Ipratropium (Duoneb 3.0-0.5 Mg/3 Ml) 3 ml NEB ONETIME ONE Stop: 12/07/17 22:25 Last Admin: 12/07/17 22:32 Dose: 3 ml Albuterol/Ipratropium (Duoneb 3.0-0.5 Mg/3 Ml) 3 ml NEB Q4H [facility] Last Admin: 12/08/17 07:09 Dose: 3 ml Carbidopa/Levodopa (Sinemet 10-100 Mg) 1 tab PO DAILY [facility] Stop: 12/08/17 09:00 Furosemide (Lasix) 60 mg IVPUSH ONETIME ONE Stop: 12/07/17 22:18 Last Admin: 12/07/17 22:27 Dose: 60 mg Furosemide (Lasix) Confirm Administered Dose 100 mg .ROUTE .STK-MED ONE Stop: 12/07/17 22:30 Last Admin: 12/08/17 00:24 Dose: Not Given Sodium Chloride (Normal Saline) 1,000 mls @ 500 mls/hr IV ASDIRECTED [facility] Sodium Chloride (Normal Saline) 1,000 mls @ 150 mls/hr IV ASDIRECTED [facility] Last Admin: 12/07/17 20:50 Dose: 150 mls/hr Sodium Chloride (Normal Saline) 1,000 mls @ 500 mls/hr IV ASDIRECTED [facility] Ceftriaxone Sodium 1 gm/ (Sodium Chloride) 50 mls @ 100 mls/hr IV ONETIME ONE Stop: 12/07/17 21:59 Last Admin: 12/07/17 21:40 Dose: 100 mls/hr Sodium Chloride (Normal Saline) 1,000 mls @ 100 mls/hr IV ASDIRECTED [facility] Last Admin: 12/08/17 05:00 Dose: 100 mls/hr Methylprednisolone Sodium Succinate (Solu-Medrol) 125 mg IVPUSH ONETIME ONE Stop: 12/07/17 22:25 Last Admin: 12/07/17 22:32 Dose: 125 mg Methylprednisolone Sodium Succinate (Solu-Medrol) 62.5 mg IV Q8HR [facility] Last Admin: 12/08/17 14:52 Dose: 62.5 mg Ondansetron HCl (Zofran) 4 mg IVPUSH ONETIME ONE Stop: 12/07/17 20:01 Last Admin: 12/07/17 20:48 Dose: 4 mg Pantoprazole Sodium (Protonix Iv) 40 mg IVPUSH ONETIME ONE Stop: 12/07/17 23:46 Last Admin: 12/08/17 00:24 Dose: 40 mg - Exam Quality Assessment: No: Supplemental Oxygen General: Alert, Oriented, Cooperative, No Acute Distress Lungs: Normal Respiratory Effort, Crackles (both bases) Cardiovascular: Regular Rate, Regular Rhythm Extremities: Pedal Edema Psy/Mental Status: Alert, Normal Affect - Problem List Review Problem List Initiated/Reviewed/Updated: Yes - My Orders Last 24 Hours: My Active Orders 12/08/17 09:00 Carbidopa/Levodopa [Sinemet 10-100 mg] 1 tab PO TID 12/08/17 11:22 Communication Order [RC] PRN Communication Order [RC] PRN Diabetes Education [RC] Click to Edit Notify Provider [RC] PRN 12/08/17 15:29 Convert IV to Saline Lock [OM.PC] Routine 12/08/17 16:30 GLUCOSE POC LAB TO COLLECT [POC] QIDACANDBED 12/08/17 17:00 Insulin Aspart [NovoLOG] See Protocol SUBCUT QIDACANDBED 12/08/17 21:00 GLUCOSE POC LAB TO COLLECT [POC] QIDACANDBED 12/09/17 05:00 BASIC METABOLIC PANEL,BMP [CHEM] Timed CBC W/O DIFF,HEMOGRAM [HEME] Timed (1) INR,PT,PROTHROMBIN TIME [COAG] Timed 12/09/17 07:30 GLUCOSE POC LAB TO COLLECT [POC] QIDACANDBED 12/09/17 08:00 predniSONE 20 mg PO WITHBREAKFAST 12/09/17 11:30 GLUCOSE POC LAB TO COLLECT [POC] QIDACANDBED 12/09/17 16:30 GLUCOSE POC LAB TO COLLECT [POC] QIDACANDBED 12/09/17 21:00 GLUCOSE POC LAB TO COLLECT [POC] QIDACANDBED 12/10/17 07:30 GLUCOSE POC LAB TO COLLECT [POC] QIDACANDBED 12/10/17 11:30 GLUCOSE POC LAB TO COLLECT [POC] QIDACANDBED 12/10/17 16:30 GLUCOSE POC LAB TO COLLECT [POC] QIDACANDBED 12/10/17 21:00 GLUCOSE POC LAB TO COLLECT [POC] QIDACANDBED 12/11/17 07:30 GLUCOSE POC LAB TO COLLECT [POC] QIDACANDBED 12/11/17 11:30 GLUCOSE POC LAB TO COLLECT [POC] QIDACANDBED 12/11/17 16:30 GLUCOSE POC LAB TO COLLECT [POC] QIDACANDBED 12/11/17 21:00 GLUCOSE POC LAB TO COLLECT [POC] QIDACANDBED 12/12/17 07:30 GLUCOSE POC LAB TO COLLECT [POC] QIDACANDBED 12/12/17 11:30 GLUCOSE POC LAB TO COLLECT [POC] QIDACANDBED 12/12/17 16:30 GLUCOSE POC LAB TO COLLECT [POC] QIDACANDBED - Plan Plan:: ASSESSMENT AND PLAN - Bilateral pneumonia with hypoxic respiratory failure - clinically much improved since admission. No evidence for congestive heart failure. He is off supplemental oxygen as of right now. -Continue ceftriaxone and azithromycin -Saline lock IV fluids -Sputum culture pending -Supplement oxygen -Scheduled and as needed nebulizers -Transition to prednisone -speciality mattress for fragile skin Parkinson's disease - chronic, fairly debilitating but stable. -Continue home meds -physical therapy Essential hypertension, CAD- blood pressure currently normal but will need to be monitored closely with active infection. Usual medications will be continued unless blood pressure trends down A-Fib - Rate controlled, INR therapeutic. -Coumadin 2.5mg po daily -monitor INR/PT Maintenance issues - - DVT prophylaxis - Coumadin 2.5mg po daily - GI prophylaxis - PPI - Nutrition - regular diet - Reveles catheter - not indicated CODE STATUS - full code, family to re-assess in am, when Kymberly will be here. Admission justification - This patient will be admitted for inpatient services and is medically appropriate meeting medical necessity for inpatient admission as outlined in my documentation. I reasonably expect the patient will require inpatient services that span a period time over 2 midnights. I reasonably expect this patient to be discharged or transferred within 96 hours [facility] Disposition - anticipate discharge home after the hospital stay Primary care physician - MD Adonis Russo M.D.
[2017-12-08] MEDS ORDERED: diphenhydrAMINE 25 MG Cap PO PRN (15:44)
[2017-12-08] MEDS: Insulin Aspart 100 Units/ML 3 ML Pen SUBCUT SCH ×2 (17:02→21:06)
[2017-12-08] MEDS: Pravastatin 20 MG Tab PO SCH (21:10)
[2017-12-08] MEDS: Acetaminophen 500 MG Tab PO SCH (21:11)
[2017-12-08] MEDS: cefTRIAXone 1 GM in Sodium Chloride 0.9% 50 ML IV SCH (21:11)
[2017-12-08] MEDS: Pantoprazole 40 MG Tab.CR PO SCH (21:11)
[2017-12-08] MEDS: Benzocaine/Cetylpyridinium/Menthol Lozenge MUCMEM PRN (21:57)
[2017-12-09] MEDS: Albuterol/Ipratropium 3.0-0.5 MG/3 ML Neb Soln NEB SCH ×6 (03:22→22:44)
[2017-12-09] MEDS ORDERED: Pantoprazole 40 MG Vial IVPUSH SCH (07:30)
[2017-12-09] MEDS: Insulin Aspart 100 Units/ML 3 ML Pen SUBCUT SCH ×4 (08:24→21:18)
[2017-12-09] MEDS: Acetaminophen 500 MG Tab PO SCH ×3 (08:26→21:17)
[2017-12-09] MEDS: Finasteride 5 MG Tab PO SCH (08:26)
[2017-12-09] MEDS: Carbidopa/Levodopa 10-100 MG Tab PO SCH ×3 (08:27→21:15)
[2017-12-09] MEDS: Furosemide 20 MG Tab PO SCH (08:27)
[2017-12-09] MEDS: predniSONE 20 MG Tab PO SCH (08:27)
[2017-12-09] MEDS: Allopurinol 100 MG Tab PO SCH ×2 (08:42→09:47)
[2017-12-09] MEDS: Lisinopril 10 MG Tab PO SCH (09:50)
[2017-12-09] MEDS: Pindolol 10 MG Tab PO SCH ×2 (09:51→21:15)
--- NOTE | 2017-12-09 10:03 | CR ---
Chest 1V Frontal HISTORY: Cough COMPARISON: 02/07/2017. FINDINGS: Prior median sternotomy. Mild stable cardiomegaly. Calcified pleural plaque on the left. Th tanisha were present and reported on 2006 CT scan. Possible developing infiltrate in the right lower lobe . No effusions. Impression: 1. Stable cardiomegaly. 2. Possible developing infiltrate right lung base.
[2017-12-09] MEDS: Warfarin 2.5 MG Tab PO SCH (12:37)
--- NOTE | 2017-12-09 16:55 | PCM.PN ---
- General Info Date of Service: 12/09/17 Subjective Update: Mr. Hidalgo is an 87-year-old gentleman hospitalized with bilateral pneumonia and respiratory compromise. He has been treated with IV antibiotics and noted significant improvement in his respiratory status since admission. Denies ongoing shortness of breath and his cough has improved significantly. Vital signs have been stable and he has remained afebrile. - Review of Systems General: Reports: Weakness. Denies: Fever, Chills Pulmonary: Reports: Cough. Denies: Shortness of Breath, Sputum, Hemoptysis, Wheezing Cardiovascular: Reports: Edema. Denies: Chest Pain, Palpitations, Dyspnea on Exertion, Orthopnea, PND Gastrointestinal: Reports: No Symptoms - Patient Data Vitals - Most Recent: Last Vital Signs Temp 96.4 F 12/09/17 14:26 Pulse 52 L 12/09/17 15:08 Resp 18 12/09/17 14:26 BP 100/50 L 12/09/17 14:26 Pulse Ox 97 12/09/17 15:08 Weight - Most Recent: 200 lb 14.41 oz I&O - Last 24 Hours: Intake & Output 12/09/17 12/09/17 12/09/17 06:59 14:59 22:59 Intake Total 240 600 Output Total 200 Balance 40 600 Lab Results Last 24 Hours: Laboratory Results - last 24 hr 12/09/17 12/09/17 12/09/17 Range/Units 05:49 05:49 05:49 WBC 10.3 (4.5-11.0) K/uL RBC 3.50 L (4.30-5.90) M/uL Hgb 11.3 L (12.0-15.0) g/dL Hct 33.6 L (40.0-54.0) % MCV 96 (80-98) fL MCH 32 H (27-31) pg MCHC 34 (32-36) % Plt Count 110 L (150-400) K/uL PT 33.0 H (9.5-12.0) sec INR 2.95 H (0.80-1.20) Sodium 140 (140-148) mmol/L Potassium 3.8 (3.6-5.2) mmol/L Chloride 104 (100-108) mmol/L Carbon Dioxide 24 (21-32) mmol/L Anion Gap 12.0 (5.0-14.0) mmol/L BUN 44 H D (7-18) mg/dL Creatinine 1.3 (0.8-1.3) mg/dL Est Cr Clr Drug Dosing 37.47 mL/min Estimated GFR (MDRD) 52 L (>60) Glucose 188 H (74-106) mg/dL Calcium 8.1 L (8.5-10.1) mg/dL Med Orders - Current: Current Medications Acetaminophen (Tylenol Extra Strength) 1,000 mg PO TID [facility] Last Admin: 12/09/17 13:37 Dose: 1,000 mg Albuterol (Proventil Neb Soln) 2.5 mg NEB Q4H PRN PRN Reason: Shortness of Breath Albuterol/Ipratropium (Duoneb 3.0-0.5 Mg/3 Ml) 3 ml NEB Q4H [facility] Last Admin: 12/09/17 15:07 Dose: 3 ml Allopurinol (Zyloprim) 100 mg PO DAILY [facility] Last Admin: 12/09/17 09:47 Dose: Not Given Benzocaine/Menthol (Cepacol Sore Throat) 1 lozenge MUCMEM 5XDAY PRN PRN Reason: Cough Last Admin: 12/08/17 21:57 Dose: 1 lozenge Bisacodyl (Dulcolax) 5 mg PO DAILY PRN PRN Reason: Constipation Carbidopa/Levodopa (Sinemet 10-100 Mg) 1 tab PO TID [facility] Last Admin: 12/09/17 13:37 Dose: 1 tab Diphenhydramine HCl (Benadryl) 25 - 50 mg PO BEDTIME PRN PRN Reason: sleep Docusate Sodium (Colace) 100 mg PO BID PRN PRN Reason: Constipation Finasteride (Proscar) 5 mg PO DAILY [facility] Last Admin: 12/09/17 08:26 Dose: 5 mg Furosemide (Lasix) 20 mg PO DAILY [facility] Last Admin: 12/09/17 08:27 Dose: 20 mg Azithromycin 500 mg/ Sodium (Chloride) 250 mls @ 250 mls/hr IV Q24H [facility] Last Admin: 12/08/17 22:00 Dose: 250 mls/hr Ceftriaxone Sodium 1 gm/ (Sodium Chloride) 50 mls @ 100 mls/hr IV Q24H [facility] Last Admin: 12/08/17 21:11 Dose: 100 mls/hr Insulin Aspart (Novolog) 0 unit SUBCUT QIDACANDBED [facility] PRN Reason: Protocol Last Admin: 12/09/17 12:36 Dose: 1 units Lisinopril (Prinivil) 10 mg PO DAILY [facility] Last Admin: 12/09/17 09:50 Dose: 10 mg Lorazepam (Ativan) 0.5 - 1 mg IV Q6H PRN PRN Reason: Nausea/Vomiting Melatonin (Melatonin) 6 mg PO BEDTIME PRN PRN Reason: Insomnia Last Admin: 12/08/17 22:20 Dose: 6 mg Morphine Sulfate (Morphine) 2 mg IVPUSH Q2H PRN PRN Reason: Pain (severe 7-10) Nitroglycerin (Nitrostat) 0.4 mg SL ASDIRECTED PRN PRN Reason: Chest Pain Ondansetron HCl (Zofran Odt) 4 mg PO Q6H PRN PRN Reason: Nausea able to take PO Oxycodone HCl (Oxycodone) 5 mg PO Q4H PRN PRN Reason: Pain (moderate 4-6) Last Admin: 12/09/17 04:55 Dose: 5 mg Pantoprazole Sodium (Protonix) 40 mg PO BEDTIME [facility] Last Admin: 12/08/17 21:11 Dose: 40 mg Pindolol (Pindolol) 10 mg PO BID [facility] Last Admin: 12/09/17 09:51 Dose: 10 mg Pravastatin Sodium (Pravachol) 80 mg PO BEDTIME [facility] Last Admin: 12/08/17 21:10 Dose: 80 mg Prednisone (Prednisone) 20 mg PO WITHBREAKFAST [facility] Last Admin: 12/09/17 08:27 Dose: 20 mg Warfarin Sodium (Coumadin) 2.5 mg PO DAILY@1300 [facility] Last Admin: 12/09/17 12:37 Dose: 2.5 mg Discontinued Medications Acetaminophen (Tylenol) 650 mg PO Q4H PRN PRN Reason: Pain (Mild 1-3)/fever Last Admin: 12/08/17 00:22 Dose: 650 mg Albuterol/Ipratropium (Duoneb 3.0-0.5 Mg/3 Ml) 3 ml NEB ONETIME ONE Stop: 12/07/17 22:25 Last Admin: 12/07/17 22:32 Dose: 3 ml Albuterol/Ipratropium (Duoneb 3.0-0.5 Mg/3 Ml) 3 ml NEB Q4H [facility] Last Admin: 12/08/17 07:09 Dose: 3 ml Carbidopa/Levodopa (Sinemet 10-100 Mg) 1 tab PO DAILY [facility] Stop: 12/08/17 09:00 Furosemide (Lasix) 60 mg IVPUSH ONETIME ONE Stop: 12/07/17 22:18 Last Admin: 12/07/17 22:27 Dose: 60 mg Furosemide (Lasix) Confirm Administered Dose 100 mg .ROUTE .STK-MED ONE Stop: 12/07/17 22:30 Last Admin: 12/08/17 00:24 Dose: Not Given Sodium Chloride (Normal Saline) 1,000 mls @ 500 mls/hr IV ASDIRECTED [facility] Sodium Chloride (Normal Saline) 1,000 mls @ 150 mls/hr IV ASDIRECTED [facility] Last Admin: 12/07/17 20:50 Dose: 150 mls/hr Sodium Chloride (Normal Saline) 1,000 mls @ 500 mls/hr IV ASDIRECTED [facility] Ceftriaxone Sodium 1 gm/ (Sodium Chloride) 50 mls @ 100 mls/hr IV ONETIME ONE Stop: 12/07/17 21:59 Last Admin: 12/07/17 21:40 Dose: 100 mls/hr Sodium Chloride (Normal Saline) 1,000 mls @ 100 mls/hr IV ASDIRECTED [facility] Last Admin: 12/08/17 05:00 Dose: 100 mls/hr Methylprednisolone Sodium Succinate (Solu-Medrol) 125 mg IVPUSH ONETIME ONE Stop: 12/07/17 22:25 Last Admin: 12/07/17 22:32 Dose: 125 mg Methylprednisolone Sodium Succinate (Solu-Medrol) 62.5 mg IV Q8HR [facility] Last Admin: 12/08/17 14:52 Dose: 62.5 mg Ondansetron HCl (Zofran) 4 mg IVPUSH ONETIME ONE Stop: 12/07/17 20:01 Last Admin: 12/07/17 20:48 Dose: 4 mg Pantoprazole Sodium (Protonix Iv) 40 mg IVPUSH ONETIME ONE Stop: 12/07/17 23:46 Last Admin: 12/08/17 00:24 Dose: 40 mg - Exam Quality Assessment: DVT Prophylaxis General: Alert, Oriented, Cooperative, No Acute Distress Lungs: Decreased Breath Sounds, Wheezing. No: Crackles, Rales, Rhonchi, Rub Cardiovascular: Regular Rate, No Murmurs, Irregular Rhythm GI/Abdominal Exam: Soft, Non-Tender, No Organomegaly, No Distention Extremities: Non-Tender, Pedal Edema Skin: Warm, Dry, Intact - Problem List Review Problem List Initiated/Reviewed/Updated: Yes - My Orders Last 24 Hours: My Active Orders 12/09/17 14:26 Consult to Physical Therapy [PT Evaluation and Treatment] [CONS] Routine 12/10/17 05:00 BASIC METABOLIC PANEL,BMP [CHEM] Timed INR,PT,PROTHROMBIN TIME [COAG] Timed - Plan Plan:: ASSESSMENT AND PLAN - Bilateral pneumonia with hypoxic respiratory failure - clinically much improved since admission. No evidence for congestive heart failure. He is off supplemental oxygen with marked improvement in shortness of breath. -Continue ceftriaxone and azithromycin -Saline lock IV fluids -Sputum culture pending -Supplement oxygen -Scheduled and as needed nebulizers -prednisone 20 mg twice daily -speciality mattress for fragile skin Parkinson's disease - chronic, fairly debilitating but stable. -Continue home meds -physical therapy Essential hypertension, CAD- blood pressure currently normal but will need to be monitored closely with active infection. Usual medications will be continued unless blood pressure trends down A-Fib - Rate controlled, INR therapeutic. -Coumadin 2.5mg po daily -monitor INR/PT Maintenance issues - - DVT prophylaxis - Coumadin 2.5mg po daily - GI prophylaxis - PPI - Nutrition - regular diet - Reveles catheter - not indicated CODE STATUS - full code, family to re-assess in am, when Kymberly will be here. Admission justification - This patient will be admitted for inpatient services and is medically appropriate meeting medical necessity for inpatient admission as outlined in my documentation. I reasonably expect the patient will require inpatient services that span a period time over 2 midnights. I reasonably expect this patient to be discharged or transferred within 96 hours [facility] Disposition - anticipate discharge home after the hospital stay Primary care physician - MD Karan
[2017-12-09] MEDS: Benzocaine/Cetylpyridinium/Menthol Lozenge MUCMEM PRN (19:29)
[2017-12-09] MEDS: Pantoprazole 40 MG Tab.CR PO SCH (21:15)
[2017-12-09] MEDS: Pravastatin 20 MG Tab PO SCH (21:16)
[2017-12-09] MEDS: cefTRIAXone 1 GM in Sodium Chloride 0.9% 50 ML IV SCH (21:17)
[2017-12-09] MEDS: Azithromycin 500 MG in Sodium Chloride 0.9% 250 ML IV SCH (22:44)
[2017-12-10] MEDS: Albuterol/Ipratropium 3.0-0.5 MG/3 ML Neb Soln NEB SCH ×3 (03:22→11:22)
[2017-12-10] MEDS: Insulin Aspart 100 Units/ML 3 ML Pen SUBCUT SCH ×2 (08:27→11:38)
[2017-12-10] MEDS: predniSONE 20 MG Tab PO SCH (08:28)
[2017-12-10] MEDS: Pindolol 10 MG Tab PO SCH (08:29)
[2017-12-10] MEDS: Lisinopril 10 MG Tab PO SCH (08:29)
[2017-12-10] MEDS: Finasteride 5 MG Tab PO SCH (08:30)
[2017-12-10] MEDS: Acetaminophen 500 MG Tab PO SCH ×2 (08:30→14:17)
[2017-12-10] MEDS: Furosemide 20 MG Tab PO SCH (08:30)
[2017-12-10] MEDS: Carbidopa/Levodopa 10-100 MG Tab PO SCH ×2 (08:30→14:18)
[2017-12-10] MEDS: Allopurinol 100 MG Tab PO SCH (08:31)
[2017-12-10 11:19] VITALS: BP 115/62
[2017-12-10] MEDS: Warfarin 2.5 MG Tab PO SCH (12:45)
--- NOTE | 2017-12-10 13:48 | PCM.DCSUM1 ---
Discharge Summary - Hospital Course Brief History: Mr. Hidalgo is an 87-year-old gentleman who was admitted through the emergency department with hypoxia secondary to bilateral pulmonary infiltrates. - Discharge Data Discharge Date: 12/10/17 Discharge Disposition: Home, W Home Health Agency 06 Condition: Fair - Discharge Diagnosis/Problem(s) (1) Bilateral pneumonia SNOMED Code(s): 300117417 ICD Code: J18.9 - PNEUMONIA, UNSPECIFIED ORGANISM Status: Acute Priority : High Current Visit: Yes Qualifiers: Lung location: unspecified part of lung (2) Hypoxia SNOMED Code(s): 093489124 ICD Code: R09.02 - HYPOXEMIA Status: Acute Current Visit: Yes (3) Parkinson's syndrome SNOMED Code(s): 55627823 ICD Code: G20 - PARKINSON'S DISEASE Status: Chronic Current Visit: No - Patient Summary/Data Consults: Consultations 12/07/17 23:05 OT Evaluation and Treatment [CONS] Routine Please Evaluate and Treat. OT Reason for Consult: Discharge Planning This query below is only for informational purposes and is not editable. 12/09/17 14:26 Consult to Physical Therapy [PT Evaluation and Treatment] [CONS] Routine Please Evaluate and Treat. PT Reason for Consult: Strengthening This query below is only for informational purposes and is not editable. Admission Diagnosis/Problem: Pneumonia Hospital Course: Mr. Hidalgo is an 87-year-old gentleman who developed progressive weakness, dyspnea and cough. On evaluation in the emergency department was noted to have bilateral pulmonary infiltrates and also found to be hypoxic. He was given supplemental oxygen, IV fluids for hydration, and blood cultures were obtained. On admission he was started on IV Solu-Medrol as well as antibiotic therapy with Rocephin and azithromycin. With these interventions he improved relatively rapidly and over the next 2 days noted progressive improvement in cough and dyspnea. He has a known history of Parkinson's disease and was continued on his home medical regimen 4 Parkinson's. By the time of discharge blood cultures still show no evidence of any growth. He will be discharged home on additional 4 days of oral prednisone as well as antibiotic therapy with Omnicef. By the time of discharge he completed a full course of azithromycin. Activity will be as tolerated and home care will be arranged with home physical therapy and occupational therapy. Follow-up appointment should be scheduled with his primary care provider within one week. He will resume his usual diet. - Patient Instructions Diet: Usual Diet as Tolerated Activity: As Tolerated Other/Special Instructions: Schedule follow-up appointment with primary care provider within one week. - Discharge Plan Prescriptions/Med Rec: Cefdinir [Omnicef] 300 mg PO BID #8 cap Prednisone [IJD: predniSONE] 20 mg PO WITHBREAKFAST #4 tablet Home Medications: Home Meds Allopurinol 100 mg PO DAILY 05/17/14 [History] Finasteride 5 mg PO DAILY 05/17/14 [History] Furosemide 20 mg PO DAILY 05/17/14 [History] Lisinopril 10 mg PO DAILY 05/17/14 [History] Omeprazole 20 mg PO BEDTIME 05/17/14 [History] Pravastatin Sodium 80 mg PO BEDTIME 05/17/14 [History] Warfarin [Coumadin] 2.5 mg PO DAILY 05/17/14 [History] Nitroglycerin [Nitrostat] 0.4 mg SL ASDIRECTED PRN 08/16/14 [History] Pindolol [Visken] 10 mg PO BID 08/16/14 [History] Carbidopa/Levodopa [Carbidopa-Levodopa 10-100] 1 tab PO TID 12/07/17 [History] Cefdinir [Omnicef] 300 mg PO BID #8 cap 12/10/17 [Rx] Prednisone [IJD: predniSONE] 20 mg PO WITHBREAKFAST #4 tablet 12/10/17 [Rx] Referrals: PCP,None [Primary Care Provider] - - Patient Data Vitals - Most Recent: Last Vital Signs Temp 97.9 F 12/10/17 11:18 Pulse 76 12/10/17 11:22 Resp 18 12/10/17 11:18 BP 115/62 12/10/17 11:18 Pulse Ox 95 12/10/17 12:51 Weight - Most Recent: 200 lb 14.41 oz I&O - Last 24 hours: Intake & Output 12/09/17 12/10/17 12/10/17 22:59 06:59 14:59 Intake Total 610 740 Output Total 891 425 675 Balance 135 -425 65 Lab Results - Last 24 hrs: Laboratory Results - last 24 hr 12/10/17 12/10/17 Range/Units 04:45 04:45 PT 33.2 H (9.5-12.0) sec INR 2.97 H (0.80-1.20) Sodium 141 (140-148) mmol/L Potassium 3.8 (3.6-5.2) mmol/L Chloride 106 (100-108) mmol/L Carbon Dioxide 24 (21-32) mmol/L Anion Gap 11.3 (5.0-14.0) mmol/L BUN 45 H (7-18) mg/dL Creatinine 1.1 (0.8-1.3) mg/dL Est Cr Clr Drug Dosing 44.34 mL/min Estimated GFR (MDRD) > 60 (>60) Glucose 165 H (74-106) mg/dL Calcium 8.1 L (8.5-10.1) mg/dL Med Orders - Current: Current Medications Acetaminophen (Tylenol Extra Strength) 1,000 mg PO TID [facility] Last Admin: 12/10/17 08:30 Dose: 1,000 mg Albuterol (Proventil Neb Soln) 2.5 mg NEB Q4H PRN PRN Reason: Shortness of Breath Albuterol/Ipratropium (Duoneb 3.0-0.5 Mg/3 Ml) 3 ml NEB Q4H [facility] Last Admin: 12/10/17 11:22 Dose: 3 ml Allopurinol (Zyloprim) 100 mg PO DAILY [facility] Last Admin: 12/10/17 08:31 Dose: 100 mg Benzocaine/Menthol (Cepacol Sore Throat) 1 lozenge MUCMEM 5XDAY PRN PRN Reason: Cough Last Admin: 12/09/17 19:29 Dose: 1 lozenge Bisacodyl (Dulcolax) 5 mg PO DAILY PRN PRN Reason: Constipation Carbidopa/Levodopa (Sinemet 10-100 Mg) 1 tab PO TID [facility] Last Admin: 12/10/17 08:30 Dose: 1 tab Diphenhydramine HCl (Benadryl) 25 - 50 mg PO BEDTIME PRN PRN Reason: sleep Docusate Sodium (Colace) 100 mg PO BID PRN PRN Reason: Constipation Finasteride (Proscar) 5 mg PO DAILY [facility] Last Admin: 12/10/17 08:30 Dose: 5 mg Furosemide (Lasix) 20 mg PO DAILY [facility] Last Admin: 12/10/17 08:30 Dose: 20 mg Azithromycin 500 mg/ Sodium (Chloride) 250 mls @ 250 mls/hr IV Q24H [facility] Last Admin: 12/09/17 22:44 Dose: 250 mls/hr Ceftriaxone Sodium 1 gm/ (Sodium Chloride) 50 mls @ 100 mls/hr IV Q24H [facility] Last Admin: 12/09/17 21:17 Dose: 100 mls/hr Insulin Aspart (Novolog) 0 unit SUBCUT QIDACANDBED [facility] PRN Reason: Protocol Last Admin: 12/10/17 11:38 Dose: 1 units Lisinopril (Prinivil) 10 mg PO DAILY [facility] Last Admin: 12/10/17 08:29 Dose: 10 mg Lorazepam (Ativan) 0.5 - 1 mg IV Q6H PRN PRN Reason: Nausea/Vomiting Melatonin (Melatonin) 6 mg PO BEDTIME PRN PRN Reason: Insomnia Last Admin: 12/08/17 22:20 Dose: 6 mg Morphine Sulfate (Morphine) 2 mg IVPUSH Q2H PRN PRN Reason: Pain (severe 7-10) Nitroglycerin (Nitrostat) 0.4 mg SL ASDIRECTED PRN PRN Reason: Chest Pain Ondansetron HCl (Zofran Odt) 4 mg PO Q6H PRN PRN Reason: Nausea able to take PO Oxycodone HCl (Oxycodone) 5 mg PO Q4H PRN PRN Reason: Pain (moderate 4-6) Last Admin: 12/09/17 04:55 Dose: 5 mg Pantoprazole Sodium (Protonix) 40 mg PO BEDTIME [facility] Last Admin: 12/09/17 21:15 Dose: 40 mg Pindolol (Pindolol) 10 mg PO BID [facility] Last Admin: 12/10/17 08:29 Dose: 10 mg Pravastatin Sodium (Pravachol) 80 mg PO BEDTIME [facility] Last Admin: 12/09/17 21:16 Dose: 80 mg Prednisone (Prednisone) 20 mg PO WITHBREAKFAST [facility] Last Admin: 12/10/17 08:28 Dose: 20 mg Warfarin Sodium (Coumadin) 2.5 mg PO DAILY@1300 [facility] Last Admin: 12/10/17 12:45 Dose: 2.5 mg Discontinued Medications Acetaminophen (Tylenol) 650 mg PO Q4H PRN PRN Reason: Pain (Mild 1-3)/fever Last Admin: 12/08/17 00:22 Dose: 650 mg Albuterol/Ipratropium (Duoneb 3.0-0.5 Mg/3 Ml) 3 ml NEB ONETIME ONE Stop: 12/07/17 22:25 Last Admin: 12/07/17 22:32 Dose: 3 ml Albuterol/Ipratropium (Duoneb 3.0-0.5 Mg/3 Ml) 3 ml NEB Q4H [facility] Last Admin: 12/08/17 07:09 Dose: 3 ml Carbidopa/Levodopa (Sinemet 10-100 Mg) 1 tab PO DAILY [facility] Stop: 12/08/17 09:00 Furosemide (Lasix) 60 mg IVPUSH ONETIME ONE Stop: 12/07/17 22:18 Last Admin: 12/07/17 22:27 Dose: 60 mg Furosemide (Lasix) Confirm Administered Dose 100 mg .ROUTE .STK-MED ONE Stop: 12/07/17 22:30 Last Admin: 12/08/17 00:24 Dose: Not Given Sodium Chloride (Normal Saline) 1,000 mls @ 500 mls/hr IV ASDIRECTED [facility] Sodium Chloride (Normal Saline) 1,000 mls @ 150 mls/hr IV ASDIRECTED [facility] Last Admin: 12/07/17 20:50 Dose: 150 mls/hr Sodium Chloride (Normal Saline) 1,000 mls @ 500 mls/hr IV ASDIRECTED [facility] Ceftriaxone Sodium 1 gm/ (Sodium Chloride) 50 mls @ 100 mls/hr IV ONETIME ONE Stop: 12/07/17 21:59 Last Admin: 12/07/17 21:40 Dose: 100 mls/hr Sodium Chloride (Normal Saline) 1,000 mls @ 100 mls/hr IV ASDIRECTED [facility] Last Admin: 12/08/17 05:00 Dose: 100 mls/hr Methylprednisolone Sodium Succinate (Solu-Medrol) 125 mg IVPUSH ONETIME ONE Stop: 12/07/17 22:25 Last Admin: 12/07/17 22:32 Dose: 125 mg Methylprednisolone Sodium Succinate (Solu-Medrol) 62.5 mg IV Q8HR [facility] Last Admin: 12/08/17 14:52 Dose: 62.5 mg Ondansetron HCl (Zofran) 4 mg IVPUSH ONETIME ONE Stop: 12/07/17 20:01 Last Admin: 12/07/17 20:48 Dose: 4 mg Pantoprazole Sodium (Protonix Iv) 40 mg IVPUSH ONETIME ONE Stop: 12/07/17 23:46 Last Admin: 12/08/17 00:24 Dose: 40 mg *Q Meaningful Use (DIS) - VTE *Q VTE Criteria *Q: - Stroke *Q Stroke Criteria *Q: - AMI *Q AMI Criteria *Q:
== END 2017-12-10 15:09 | disposition home health service (06) | DRG 193 ==
LOC: JP.ED 19:56 → JP.MS 22:12
PROVIDERS: ADMIT Internal Medicine; ATTEND Hospitalist
DX: J18.9 Pneumonia, unspecified organism (principal); J96.91 Respiratory failure, unspecified with hypoxia; R79.89 Other specified abnormal findings of blood chemistry; I10 Essential (primary) hypertension; I25.10 Atherosclerotic heart disease of native coronary artery without angina pectoris; E11.40 Type 2 diabetes mellitus with diabetic neuropathy, unspecified; I48.91 Unspecified atrial fibrillation; G20 Parkinson's disease; Z79.01 Long term (current) use of anticoagulants; R09.89 Other specified symptoms and signs involving the circulatory and respiratory systems; R11.10 Vomiting, unspecified; R05 Cough; Z79.52 Long term (current) use of systemic steroids; E78.00 Pure hypercholesterolemia, unspecified; Z85.828 Personal history of other malignant neoplasm of skin; M19.90 Unspecified osteoarthritis, unspecified site; M10.9 Gout, unspecified; I25.2 Old myocardial infarction; Z95.1 Presence of aortocoronary bypass graft; H91.90 Unspecified hearing loss, unspecified ear; Z96.649 Presence of unspecified artificial hip joint; Z91.018 Allergy to other foods
CPT/HCPCS: 36415; 36600; 71045 ×2; 80053; 81001; 82803; 83605; 83880; 85025; 85610; 87040 ×2; 87804 ×2; 93005; 96361; 96365; 96375; 99285; J0696; J2405; J7040; J7050; 80048; 82962; 85027; 86140; 93010; 94640; 94667; 94762; 97110-GO; 97110-GP; 97162-GP; 97165-GO; 97530-GP; 99284; A9270-GY; C9113; J0456; J1940; J2930; J7620

== ENCOUNTER 2018-05-02 13:19 | Observation (INO) | payer MEDICARE, BC ==
[2018-05-02] MEDS ORDERED: Acetaminophen 500 MG Tab PO ONE (14:52)
--- NOTE | 2018-05-02 14:58 | EDM.PDOC ---
ED HPI GENERAL MEDICAL PROBLEM - General Chief Complaint: General Stated Complaint: LACK OF STRENGTH, LACK OF ENERGY Time Seen by Provider: 05/02/18 14:45 Source of Information: Reports: Patient, Family History Limitations: Reports: No Limitations - History of Present Illness INITIAL COMMENTS - FREE TEXT/NARRATIVE: Mehul presents today with complaints of acute right knee pain for 7 days. He states his knee started hurting and swelling. He has tried to use a knee compression sleeve to help the pain. No significant improvement. He states he does have a history of gout. - Related Data Allergies Allergy/AdvReac Type Severity Reaction Status Date / Time strawberry Allergy Cannot Verified 05/02/18 14:12 Remember Home Meds: Home Meds Allopurinol 100 mg PO DAILY 05/17/14 [History] Finasteride 5 mg PO DAILY 05/17/14 [History] Furosemide 20 mg PO DAILY 05/17/14 [History] Lisinopril 10 mg PO DAILY 05/17/14 [History] Omeprazole 20 mg PO BEDTIME 05/17/14 [History] Pravastatin Sodium 80 mg PO BEDTIME 05/17/14 [History] Warfarin [Coumadin] 2.5 mg PO DAILY 05/17/14 [History] Nitroglycerin [Nitrostat] 0.4 mg SL ASDIRECTED PRN 08/16/14 [History] Pindolol [Visken] 10 mg PO BID 08/16/14 [History] Carbidopa/Levodopa [Carbidopa-Levodopa 10-100] 1 tab PO TID 12/07/17 [History] Prednisone [IJD: predniSONE] 20 mg PO WITHBREAKFAST #4 tablet 12/10/17 [Rx] Past Medical History HEENT History: Reports: Cataract, Hard of Hearing, Other (See Below) Other HEENT History: blood vein broke in left eye - getting an injection in eye at [facility] Cardiovascular History: Reports: Arrhythmia, Bypass, CAD, High Cholesterol, Hypertension, [place], Other (See Below) Other Cardiovascular History: chronic ischemic heart disease Respiratory History: Reports: Other (See Below) Other Respiratory History: asbestos exposure Gastrointestinal History: Reports: GERD, Other (See Below) Other Gastrointestinal History: ulcers Genitourinary History: Reports: Prostate Disorder, Other (See Below) Other Genitourinary History: pain with movement in right kidney area for past 6 months Musculoskeletal History: Reports: Fracture, Gout, Osteoarthritis Neurological History: Reports: Neuropathy, Diabetic Endocrine/Metabolic History: Reports: Diabetes, Type II Hematologic History: Reports: Anticoagulation Therapy Oncologic (Cancer) History: Reports: Basal Cell Carcinoma Dermatologic History: 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 - Infectious Disease History Infectious Disease History: Reports: Chicken Pox, Influenza - Past Surgical History HEENT Surgical History: Reports: Cataract Surgery Cardiovascular Surgical History: Reports: Coronary Artery Bypass GI Surgical History: Reports: Cholecystectomy Musculoskeletal Surgical History: Reports: Hip Replacement, Other (See Below) Social & Family History - Family History Family Medical History: Noncontributory - Tobacco Use Smoking Status *Q: Never Smoker - Caffeine Use Caffeine Use: Reports: None Caffeine Use Comment: drinks coffee twice a week - Recreational Drug Use Recreational Drug Use: No - Living Situation & Occupation Living situation: Reports: (lives with Kymberly in [place], [place]. His daughter lives in [place], [place].) Occupation: Retired ED ROS GENERAL - Review of Systems Review Of Systems: See Below Constitutional: Denies: Fever, Chills HEENT: Reports: No Symptoms Respiratory: Denies: Shortness of Breath, Wheezing, Cough, Sputum Cardiovascular: Denies: Chest Pain, Dyspnea on Exertion, Edema, Lightheadedness , Palpitations, PND, Syncope Endocrine: Reports: No Symptoms GI/Abdominal: Reports: No Symptoms : Reports: No Symptoms Musculoskeletal: Reports: Joint Pain, Other (Right knee pain for 7 days, no improvement with use of compression sleeve. ) Skin: Denies: Bruising, Rash, Erythema, Wound, Lesions Neurological: Reports: No Symptoms Psychiatric: Reports: No Symptoms Hematologic/Lymphatic: Reports: No Symptoms Immunologic: Reports: No Symptoms ED EXAM, GENERAL - Physical Exam Exam: See Below Free Text/Narrative:: Mehul is an alert and oriented 87 year old male with a history of parkinson's presenting for acute pain of the right knee for 7 days. Exam Limited By: No Limitations General Appearance: Alert, WD/WN, Mild Distress Eye Exam: Bilateral Eye: EOMI, Normal Inspection, PERRL Ears: Normal External Exam, Normal Canal, Hearing Grossly Normal, Normal TMs Ear Exam: Bilateral Ear: Auricle Normal, Canal Normal, TM normal Nose: Normal Inspection, Normal Mucosa, No Blood Throat/Mouth: Normal Inspection, Normal Lips, Normal Oropharynx, Normal Voice, No Airway Compromise, Other (Dentures in place) Head: Atraumatic, Normocephalic Neck: Normal Inspection, Supple, Non-Tender, Full Range of Motion. No: Lymphadenopathy (R), Lymphadenopathy (L) Respiratory/Chest: No Respiratory Distress, Lungs Clear, Normal Breath Sounds, No Accessory Muscle Use, Chest Non-Tender Cardiovascular: Normal Peripheral Pulses, Regular Rate, Rhythm, No Murmur, No Rub, Other (Chronic edema to bilateral lower extremities, 2 to 3+. ) Peripheral Pulses: 1+: Dorsalis Pedis (L), Dorsalis Pedis (R), 2+: Radial (L), Radial (R) GI/Abdominal: Normal Bowel Sounds, Soft, Non-Tender, No Distention, No Mass Back Exam: Normal Inspection, Full Range of Motion. No: CVA Tenderness (R), CVA Tenderness (L) Extremities: Normal Capillary Refill, Limited Range of Motion, Increased Warmth , Other (increased warmth without erythema to right knee, bilateral pedal edeam 2-3+. ) Neurological: Alert, Oriented, CN II-XII Intact, Normal Cognition, No Motor/ Sensory Deficits, Other (Walks short distances with a walker) Psychiatric: Normal Affect, Normal Mood Skin Exam: Warm, Dry, Intact, Normal Color, No Rash. No: Ecchymosis, Erythema Lymphatic: No Adenopathy Course - Vital Signs Last Recorded V/S: Last Vital Signs Temp 37.2 C 05/02/18 14:13 Pulse 79 05/02/18 16:06 Resp 16 05/02/18 15:05 BP 137/62 05/02/18 16:06 Pulse Ox 83 L 05/02/18 16:06 - Orders/Labs/Meds Orders: Active Orders 24 hr Category Date Time Status Knee 3V Rt [CR] Stat Exams 05/02/18 14:53 Taken URIC ACID [CHEM] Stat Lab 05/02/18 15:23 Ordered Labs: Laboratory Tests 05/02/18 05/02/18 05/02/18 Range/Units 15:08 15:23 15:31 WBC 9.9 (4.5-11.0) K/uL RBC 4.14 L (4.30-5.90) M/uL Hgb 13.4 D (12.0-15.0) g/dL Hct 40.7 (40.0-54.0) % MCV 98 (80-98) fL MCH 32 H (27-31) pg MCHC 33 (32-36) % Plt Count 179 (150-400) K/uL Neut % (Auto) 69 H (36-66) % Lymph % (Auto) 18 L (24-44) % [place] % (Auto) 12 H (2-6) % Eos % (Auto) 1 L (2-4) % Baso % (Auto) 0 (0-1) % Uric Acid 10.2 H (3.5-7.2) mg/dL C-Reactive Protein 2.26 H (0.0-0.3) mg/dL Meds: Medications Discontinued Medications Generic Name Dose Route Start Last Admin Trade Name Freq PRN Reason Stop Dose Admin Acetaminophen 1,000 mg 05/02/18 14:52 05/02/18 15:05 Tylenol Extra Strength PO 05/02/18 14:53 1,000 mg ONETIME ONE Administration - Radiology Interpretation Free Text/Narrative:: Right knee x-ray completed and reviewed, wet read. No acute findings, noted vascular calcification. Radiologist read pending. - Re-Assessments/Exams Free Text/Narrative Re-Assessment/Exam: 05/02/18 15:50 Discussed patient lab work, x-ray with him and his family. Offered to do oral prednisone and discharge to home. Patient and family concerned for fall risk due to patient's pain and difficulty ambulating. Discussed patient status with Dr. Gamboa, patient will be admitted for right knee pain, history of gout and increased fall risk. Departure - Departure Time of Disposition: 16:07 Disposition: Refer to Observation Condition: Fair Clinical Impression: Knee pain, right, Risk for falls - Discharge Information Referrals: Rome Russo MD [Primary Care Provider] - Forms: ED Department Discharge - My Orders Last 24 Hours: My Active Orders 05/02/18 14:53 Knee 3V Rt [CR] Stat 05/02/18 15:23 URIC ACID [CHEM] Stat - Assessment/Plan Last 24 Hours: My Active Orders 05/02/18 14:53 Knee 3V Rt [CR] Stat 05/02/18 15:23 URIC ACID [CHEM] Stat
[2018-05-02] MEDS ORDERED: methylPREDNISolone Sodium Succinate 40 MG/1 ML SDV IVPUSH ONE (16:10)
[2018-05-02] MEDS ORDERED: Triamcinolone Acetonide 40 MG/ML 1 ML MDV INJECT STA (16:33)
[2018-05-02] MEDS ORDERED: oxyCODONE 5 MG Tab PO PRN (17:06)
[2018-05-02] MEDS ORDERED: Magnesium Hydroxide 400 MG/5 ML Susp 30 ML Cup PO PRN (17:06)
[2018-05-02] MEDS ORDERED: Acetaminophen 325 MG Tab PO PRN (17:06)
[2018-05-02] MEDS ORDERED: Ondansetron 4 MG/2 ML SDV IV PRN (17:06)
[2018-05-02] MEDS ORDERED: Polyethylene Glycol 3350 Powder 17 GM Packet PO PRN (17:06)
--- NOTE | 2018-05-02 17:06 | PCM.HP ---
H&P History of Present Illness - General Date of Service: 05/02/18 Admit Problem/Dx: Admission Diagnosis/Problem Admission Diagnosis/Problem Pain Source of Information: Patient, Family, Old Records, Provider, RN Notes Reviewed History Limitations: Reports: No Limitations - History of Present Illness Initial Comments - Free Text/Narative: Mr. Hidalgo is an 87-year-old gentleman who is admitted through the emergency department with severe pain and swelling of his right knee. He has known osteoarthritis of the knee, over the last week it is become progressively more sore. Now over the past 24 hours pain has increased significantly to the point that he is unable to ambulate. He does have underlying Parkinson's disease which also causes difficulty with ambulation and he typically uses a walker. Evaluation in the emergency department shows normal white blood cell count, elevated uric acid level, and x-rays show evidence of osteoarthritis of the knee. He will be admitted to observation status because he is not able to safely be at home because of inability to ambulate. - Related Data Allergies/Adverse Reactions: Allergies Allergy/AdvReac Type Severity Reaction Status Date / Time strawberry Allergy Cannot Verified 05/02/18 14:12 Remember Home Medications: Home Meds Allopurinol 100 mg PO DAILY 05/17/14 [History] Finasteride 5 mg PO DAILY 05/17/14 [History] Furosemide 20 mg PO DAILY 05/17/14 [History] Lisinopril 10 mg PO DAILY 05/17/14 [History] Omeprazole 20 mg PO BEDTIME 05/17/14 [History] Pravastatin Sodium 80 mg PO BEDTIME 05/17/14 [History] Warfarin [Coumadin] 2.5 mg PO DAILY 05/17/14 [History] Nitroglycerin [Nitrostat] 0.4 mg SL ASDIRECTED PRN 08/16/14 [History] Pindolol [Visken] 10 mg PO BID 08/16/14 [History] Carbidopa/Levodopa [Carbidopa-Levodopa 10-100] 1 tab PO TID 12/07/17 [History] Prednisone [IJD: predniSONE] 20 mg PO WITHBREAKFAST #4 tablet 12/10/17 [Rx] Past Medical History HEENT History: Reports: Cataract, Hard of Hearing, Other (See Below) Other HEENT History: blood vein broke in left eye - getting an injection in eye at [facility] Cardiovascular History: Reports: Arrhythmia, Bypass, CAD, High Cholesterol, Hypertension, [place], Other (See Below) Other Cardiovascular History: chronic ischemic heart disease Respiratory History: Reports: Other (See Below) Other Respiratory History: asbestos exposure Gastrointestinal History: Reports: GERD, Other (See Below) Other Gastrointestinal History: ulcers Genitourinary History: Reports: Prostate Disorder, Other (See Below) Other Genitourinary History: pain with movement in right kidney area for past 6 months Musculoskeletal History: Reports: Fracture, Gout, Osteoarthritis Neurological History: Reports: Neuropathy, Diabetic Endocrine/Metabolic History: Reports: Diabetes, Type II Hematologic History: Reports: Anticoagulation Therapy Oncologic (Cancer) History: Reports: Basal Cell Carcinoma Dermatologic History: 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 - Infectious Disease History Infectious Disease History: Reports: Chicken Pox, Influenza - Past Surgical History HEENT Surgical History: Reports: Cataract Surgery Cardiovascular Surgical History: Reports: Coronary Artery Bypass GI Surgical History: Reports: Cholecystectomy Musculoskeletal Surgical History: Reports: Hip Replacement, Other (See Below) Social & Family History - Family History Family Medical History: Noncontributory - Tobacco Use Smoking Status *Q: Never Smoker - Caffeine Use Caffeine Use: Reports: None Caffeine Use Comment: drinks coffee twice a week - Recreational Drug Use Recreational Drug Use: No - Living Situation & Occupation Living situation: Reports: (lives with Kymberly in [place], [place]. His daughter lives in [place], [place].) Occupation: Retired H&P Review of Systems - Review of Systems: Review Of Systems: See Below General: Denies: Fever, Chills, Malaise, Weakness HEENT: Reports: No Symptoms Pulmonary: Reports: No Symptoms Cardiovascular: Reports: Edema. Denies: Chest Pain, Palpitations, Dyspnea on Exertion, Orthopnea, PND Gastrointestinal: Reports: No Symptoms Genitourinary: Reports: No Symptoms Musculoskeletal: Reports: Joint Pain (Right knee) Skin: Reports: No Symptoms Psychiatric: Reports: No Symptoms Neurological: Reports: No Symptoms Hematologic/Lymphatic: Reports: No Symptoms Immunologic: Reports: No Symptoms Exam - Exam Exam: See Below - Vital Signs Vital Signs: Last Vital Signs Temp 99.0 F 05/02/18 14:13 Pulse 79 05/02/18 16:06 Resp 16 05/02/18 15:05 BP 137/62 05/02/18 16:06 Pulse Ox 83 L 05/02/18 16:06 Weight: 205 lb - Exam Quality Assessment: DVT Prophylaxis General: Alert, Oriented, Cooperative, Mild Distress HEENT: Conjunctiva Clear, Mucosa Moist & [place], Normal Nasal Septum, Posterior Pharynx Clear, Pupils Equal. No: Hearing Intact Neck: Supple, Trachea Midline, +2 Carotid Pulse wo Bruit Lungs: Clear to Auscultation, Normal Respiratory Effort Cardiovascular: Regular Rate, Regular Rhythm, Normal S1, Normal S2 GI/Abdominal Exam: Soft, Non-Tender, No Organomegaly, No Distention Back Exam: Normal Inspection, Full Range of Motion Extremities: Pedal Edema, Other (Swelling and tenderness right knee) Skin: Warm, Dry, Intact Neurological: Cranial Nerves Intact, Strength Equal Bilateral, Normal Speech, Normal Tone, Sensation Intact, Other (Rigidity and paucity of movement consistent with Parkinson's disease). No: Focal Deficit Neuro Extensive - Mental Status: Alert, Oriented x3, Normal Mood/Affect, Normal Cognition, Memory Intact - Patient Data Lab Results Last 24 hrs: Laboratory Results - last 24 hr 05/02/18 05/02/18 05/02/18 Range/Units 15:08 15:23 15:31 WBC 9.9 (4.5-11.0) K/uL RBC 4.14 L (4.30-5.90) M/uL Hgb 13.4 D (12.0-15.0) g/dL Hct 40.7 (40.0-54.0) % MCV 98 (80-98) fL MCH 32 H (27-31) pg MCHC 33 (32-36) % Plt Count 179 (150-400) K/uL Neut % (Auto) 69 H (36-66) % Lymph % (Auto) 18 L (24-44) % [place] % (Auto) 12 H (2-6) % Eos % (Auto) 1 L (2-4) % Baso % (Auto) 0 (0-1) % Uric Acid 10.2 H (3.5-7.2) mg/dL C-Reactive Protein 2.26 H (0.0-0.3) mg/dL Result Diagrams: 05/02/18 15:08 *Q Meaningful Use (ADM) - VTE *Q VTE Pharmacological Contraindications *Q: High INR Value - VTE Risk Assess *Q Each Risk Factor Represents 1 Point: Swollen Legs, Current, Obesity ( BMI > 25 kg/m2) Total Score 1 Point Risk Factors: 2 Each Risk Factor Represents 2 Points: None Total Score 2 Point Risk Factors: 0 Each Risk Factor Represents 3 Points: Age 75 Years or Greater Total Score 3 Point Risk Factors: 3 Each Risk Factor Represents 5 Points: None Total Score 5 Point Risk Factors: 0 Venous Thromboembolism Risk Factor Score *Q: 5 Problem List Initiated/Reviewed/Updated: Yes Orders Last 24hrs: Active Orders 24 hr Category Date Time Status Patient Status Manage Transfer [TRANSFER] Routine ADT 05/02/18 16:53 Ordered Knee 3V Rt [CR] Stat Exams 05/02/18 14:53 Taken URIC ACID [CHEM] Stat Lab 05/02/18 15:23 Ordered Resuscitation Status Routine Resus Stat 05/02/18 16:56 Ordered Assessment/Plan Comment:: ASSESSMENT AND PLAN RIGHT KNEE PAIN-likely secondary to exacerbation of underlying osteoarthritis versus gout. Because of pain is unable to ambulate and is not safe for discharge to home. He will be admitted to observation status for further management. -Right knee injection with Kenalog performed in the emergency department -Solu-Medrol 40 mg IV every 12 hours -PT consult in a.m. HYPERTENSION -Continue outpatient regimen PARKINSON'S DISEASE -Continue outpatient medications MAINTENANCE ISSUES -DVT prophylaxis; current therapy with warfarin should provide adequate DVT prophylaxis -GI prophylaxis; not indicated -Reveles catheter; not indicated -Nutrition; 2 g sodium diet -Nicotine dependence; not required CODE STATUS-FULL CODE ADMISSION STATUS-this patient will be admitted to observation status, expect no more than a one night hospital stay for evaluation and management of problems as outlined above. DISPOSITION-anticipate discharge to home after the hospital stay. PRIMARY CARE PROVIDER-Dr. Russo
--- NOTE | 2018-05-02 17:12 | PCM.OPNOTE ---
- General Post-Op/Procedure Note Date of Surgery/Procedure: 05/02/18 Operative Procedure(s): Right knee injection Pre Op Diagnosis: Osteoarthritis right knee Post-Op Diagnosis: Same Primary Surgeon: Dago Gamboa Complications: None Condition: Good Free Text/Narrative:: Mr. Hidalgo is an 87-year-old gentleman with severe pain in his right knee secondary to osteoarthritis exacerbation versus gout. Risks and goals of the procedure reviewed with the patient and his who was present and he gave informed consent to proceed. Using sterile technique 40 mg of Kenalog and 1 mL of 1% lidocaine were injected into the right knee joint space from a medial approach. Procedure was otherwise completed without complication.
[2018-05-02] MEDS ORDERED: methylPREDNISolone Sodium Succinate 40 MG/1 ML SDV IM ONE (17:30)
[2018-05-02] MEDS ORDERED: Pravastatin 20 MG Tab PO SCH (21:00)
[2018-05-02] MEDS ORDERED: Pantoprazole 40 MG Tab.CR PO SCH (21:00)
[2018-05-02] MEDS: Carbidopa/Levodopa 10-100 MG Tab PO SCH (21:15)
[2018-05-02] MEDS: Pindolol 10 MG Tab PO SCH (21:35)
--- NOTE | 2018-05-02 22:04 | PCM.SN ---
- Free Text/Narrative Note: time: 2134 call from [address] [place] [address], request to hold Pindolol 10mg po bid O: b/p 96/55 p 80 A: hypotension P: hold Pindolol 10mg po at 2100 continue present plan of care.
[2018-05-03] MEDS ORDERED: Lisinopril 10 MG Tab PO SCH (09:00)
[2018-05-03] MEDS ORDERED: Allopurinol 100 MG Tab PO SCH (09:00)
[2018-05-03] MEDS: Pindolol 10 MG Tab PO SCH (09:00)
[2018-05-03] MEDS ORDERED: Furosemide 20 MG Tab PO SCH (09:00)
[2018-05-03] MEDS ORDERED: Finasteride 5 MG Tab PO SCH (09:00)
[2018-05-03] MEDS: Carbidopa/Levodopa 10-100 MG Tab PO SCH (09:00)
[2018-05-03 10:32] VITALS: BP 156/80
--- NOTE | 2018-05-03 10:40 | PCM.DCSUM1 ---
Discharge Summary - Hospital Course Brief History: Mr. Hidalgo is an 87-year-old gentleman who was admitted to observation status through the emergency department because of severe right knee pain and inability to ambulate. - Discharge Data Discharge Date: 05/03/18 Discharge Disposition: Home, W Home Health Agency Condition: Fair - Discharge Diagnosis/Problem(s) (1) Knee pain, right SNOMED Code(s): 81362921 ICD Code: M25.561 - PAIN IN RIGHT KNEE Status: Acute Current Visit: Yes (2) Parkinson's syndrome SNOMED Code(s): 60229612 ICD Code: G20 - PARKINSON'S DISEASE Status: Chronic Current Visit: No - Patient Summary/Data Operative Procedure(s) Performed: Right knee injection Consults: Consultations 05/02/18 17:06 PT Evaluation and Treatment [CONS] Routine Please Evaluate and Treat. PT Reason for Consult: Right knee pain, Parkinson's This query below is only for informational purposes and is not editable. Hospital Course: Mr. Hidalgo is an 87-year-old gentleman who was admitted through the emergency department with severe pain and swelling of his right knee. He has known osteoarthritis of the knee, over the last week it is become progressively more sore. Now over the past 24 hours pain has increased significantly to the point that he is unable to ambulate. He does have underlying Parkinson's disease which also causes difficulty with ambulation and he typically uses a walker. Evaluation in the emergency department shows normal white blood cell count, elevated uric acid level, and x-rays show evidence of osteoarthritis of the knee. He will be admitted to observation status because he is not able to safely be at home because of inability to ambulate. Prior to admission in the emergency department ejection of his right knee was performed with 40 mg of Kenalog, he was also given 40 mg of Solu-Medrol IM. By the following morning he was feeling significantly improved and able to bear weight and ambulate without significant pain in the knee. Activity will be as tolerated and he will resume his usual diet. He will be placed on allopurinol 100 mg by mouth daily. Follow-up appointment is already scheduled with Dr. Russo for next week. Home care with home physical therapy and occupational therapy will be arranged for after discharge. - Patient Instructions Diet: Low Sodium, Diabetic Diet Activity: As Tolerated Other/Special Instructions: Patient already has scheduled appointment with Dr. Yang within the next 7 days. Please arrange for home care with home physical therapy and occupational therapy after discharge. - Discharge Plan Prescriptions/Med Rec: Allopurinol [Zyloprim] 100 mg PO DAILY #30 tablet Home Medications: Home Meds Finasteride 5 mg PO DAILY 05/17/14 [History] Furosemide 20 mg PO DAILY 05/17/14 [History] Lisinopril 10 mg PO DAILY 05/17/14 [History] Omeprazole 20 mg PO BEDTIME 05/17/14 [History] Pravastatin Sodium 80 mg PO BEDTIME 05/17/14 [History] Warfarin [Coumadin] 2.5 mg PO DAILY 05/17/14 [History] Nitroglycerin [Nitrostat] 0.4 mg SL ASDIRECTED PRN 08/16/14 [History] Pindolol [Visken] 10 mg PO BID 08/16/14 [History] Carbidopa/Levodopa [Carbidopa-Levodopa 10-100] 1 tab PO TID 12/07/17 [History] Prednisone [IJD: predniSONE] 20 mg PO WITHBREAKFAST #4 tablet 12/10/17 [Rx] Allopurinol [Zyloprim] 100 mg PO DAILY #30 tablet 05/03/18 [Rx] Referrals: Rome Russo MD [Primary Care Provider] - - Discharge Summary/Plan Comment DC Time >30 min.: No - Patient Data Vitals - Most Recent: Last Vital Signs Temp 96.8 F 05/03/18 10:31 Pulse 81 05/03/18 10:31 Resp 18 05/03/18 10:31 BP 156/80 H 05/03/18 10:31 Pulse Ox 97 05/03/18 10:31 Weight - Most Recent: 205 lb I&O - Last 24 hours: Intake & Output 05/02/18 05/03/18 05/03/18 22:59 06:59 14:59 Output Total 100 Balance -100 Lab Results - Last 24 hrs: Laboratory Results - last 24 hr 05/02/18 05/02/18 05/02/18 Range/Units 15:08 15:23 15:31 WBC 9.9 (4.5-11.0) K/uL RBC 4.14 L (4.30-5.90) M/uL Hgb 13.4 D (12.0-15.0) g/dL Hct 40.7 (40.0-54.0) % MCV 98 (80-98) fL MCH 32 H (27-31) pg MCHC 33 (32-36) % Plt Count 179 (150-400) K/uL Neut % (Auto) 69 H (36-66) % Lymph % (Auto) 18 L (24-44) % [place] % (Auto) 12 H (2-6) % Eos % (Auto) 1 L (2-4) % Baso % (Auto) 0 (0-1) % PT (9.5-12.0) sec INR (0.80-1.20) Uric Acid 10.2 H (3.5-7.2) mg/dL C-Reactive Protein 2.26 H (0.0-0.3) mg/dL 05/03/18 Range/Units 05:45 WBC (4.5-11.0) K/uL RBC (4.30-5.90) M/uL Hgb (12.0-15.0) g/dL Hct (40.0-54.0) % MCV (80-98) fL MCH (27-31) pg MCHC (32-36) % Plt Count (150-400) K/uL Neut % (Auto) (36-66) % Lymph % (Auto) (24-44) % [place] % (Auto) (2-6) % Eos % (Auto) (2-4) % Baso % (Auto) (0-1) % PT 18.1 H (9.5-12.0) sec INR 1.66 H (0.80-1.20) Uric Acid (3.5-7.2) mg/dL C-Reactive Protein (0.0-0.3) mg/dL Med Orders - Current: Current Medications Acetaminophen (Tylenol) 650 mg PO Q4H PRN PRN Reason: Pain (Mild 1-3)/fever Allopurinol (Zyloprim) 100 mg PO DAILY [facility] Carbidopa/Levodopa (Sinemet 10-100 Mg) 1 tab PO TID [facility] Last Admin: 05/02/18 21:15 Dose: 1 tab Finasteride (Proscar) 5 mg PO DAILY [facility] Furosemide (Lasix) 20 mg PO DAILY [facility] Lisinopril (Prinivil) 10 mg PO DAILY [facility] Magnesium Hydroxide (Milk Of Magnesia) 30 ml PO Q12H PRN PRN Reason: Constipation Ondansetron HCl (Zofran) 4 mg IV Q4H PRN PRN Reason: Nausea/Vomiting Oxycodone HCl (Oxycodone) 5 mg PO Q4H PRN PRN Reason: Pain (moderate 4-6) Pantoprazole Sodium (Protonix) 40 mg PO BEDTIME [facility] Last Admin: 05/02/18 21:20 Dose: 40 mg Pindolol (Pindolol) 10 mg PO BID [facility] Last Admin: 05/02/18 21:35 Dose: Not Given Polyethylene Glycol (Miralax) 17 gm PO DAILY PRN PRN Reason: Constipation Pravastatin Sodium (Pravachol) 80 mg PO BEDTIME [facility] Last Admin: 05/02/18 21:20 Dose: 80 mg Senna/Docusate Sodium (Senna Plus) 1 tab PO BID PRN PRN Reason: Constipation Warfarin Sodium (Coumadin) 2.5 mg PO DAILY@1300 [facility] Discontinued Medications Acetaminophen (Tylenol Extra Strength) 1,000 mg PO ONETIME ONE Stop: 05/02/18 14:53 Last Admin: 05/02/18 15:05 Dose: 1,000 mg Lidocaine HCl (Xylocaine-Mpf 1%) 5 ml INJECT ONETIME ONE Stop: 05/02/18 16:38 Last Admin: 05/02/18 16:41 Dose: 5 ml Methylprednisolone Sodium Succinate (Solu-Medrol) 40 mg IM ONETIME ONE Stop: 05/02/18 17:31 Last Admin: 05/02/18 17:27 Dose: 40 mg Triamcinolone Acetonide (Kenalog-40) 40 mg INJECT NOW STA Stop: 05/02/18 16:34 Last Admin: 05/02/18 16:41 Dose: 40 mg - Exam General: Reports: Alert, Oriented, Cooperative, No Acute Distress Lungs: Reports: Clear to Auscultation, Normal Respiratory Effort Cardiovascular: Reports: Regular Rate, Regular Rhythm, No Murmurs GI/Abdominal Exam: Soft, Non-Tender, No Organomegaly, No Distention *Q Meaningful Use (DIS) - VTE *Q VTE Pharmacological Contraindications *Q: High INR Value
[2018-05-03] MEDS ORDERED: Warfarin 2.5 MG Tab PO SCH (13:00)
--- NOTE | 2018-05-05 08:29 | CR ---
Knee 3V Rt CLINICAL HISTORY: Acute knee pain FINDINGS: No acute fracture or dislocation is noted. There are no osseous lesions. Articular surfaces are smooth. There is some patellar spurring. Impression: Mild osteoarthritic change
== END 2018-05-03 11:15 | disposition home health service (06) ==
LOC: JP.ED 13:19 → JP.MS 16:53
PROVIDERS: ADMIT Hospitalist; ATTEND Hospitalist
DX: M17.11 Unilateral primary osteoarthritis, right knee (principal); M10.9 Gout, unspecified; G20 Parkinson's disease; I25.9 Chronic ischemic heart disease, unspecified; K21.9 Gastro-esophageal reflux disease without esophagitis; E11.40 Type 2 diabetes mellitus with diabetic neuropathy, unspecified; I10 Essential (primary) hypertension; I25.10 Atherosclerotic heart disease of native coronary artery without angina pectoris; E78.00 Pure hypercholesterolemia, unspecified; I25.2 Old myocardial infarction; I95.9 Hypotension, unspecified; Z79.899 Other long term (current) drug therapy; Z79.01 Long term (current) use of anticoagulants; Z91.018 Allergy to other foods; Z95.1 Presence of aortocoronary bypass graft
CPT/HCPCS: 20610; 36415; 73562; 84550; 85025; 85610; 86140; 96372; 97162; 99285; A9270; J2920; J3301; G0378

== ENCOUNTER 2018-08-20 10:25 | Emergency (ER) | payer MEDICARE, BC ==
[2018-08-20 11:04] VITALS: BP 154/74
[2018-08-20] MEDS ORDERED: Ketorolac 30 MG/ML SDV IM ONE (11:44)
--- NOTE | 2018-08-20 11:47 | EDM.PDOC ---
ED HPI GENERAL MEDICAL PROBLEM - General Chief Complaint: General Stated Complaint: PAIN IN RT SHOULDER Time Seen by Provider: 08/20/18 11:37 Source of Information: Reports: Patient, RN Notes Reviewed History Limitations: Reports: No Limitations - History of Present Illness INITIAL COMMENTS - FREE TEXT/NARRATIVE: 88-year-old gentleman presents to the emergency department today with complaint of right shoulder pain, he has an extensive cardiac history however he states this pain may be related to chronic shoulder issues of which she has had cortisone injections in the past but he had reached around himself to wipe his backside when he is going to the bathroom and developed increasing pain in the right shoulder. There is no shortness of breath there is no nausea vomiting there is no diaphoresis Right Shoulder Pain Score (Numeric/FACES): 8 - Related Data Allergies Allergy/AdvReac Type Severity Reaction Status Date / Time strawberry Allergy Cannot Verified 05/02/18 14:12 Remember Home Meds: Home Meds Finasteride 5 mg PO DAILY 05/17/14 [History] Furosemide 20 mg PO DAILY 05/17/14 [History] Lisinopril 10 mg PO DAILY 05/17/14 [History] Omeprazole 20 mg PO BEDTIME 05/17/14 [History] Pravastatin Sodium 80 mg PO BEDTIME 05/17/14 [History] Warfarin [Coumadin] 2.5 mg PO DAILY 05/17/14 [History] Nitroglycerin [Nitrostat] 0.4 mg SL ASDIRECTED PRN 08/16/14 [History] Carbidopa/Levodopa [Carbidopa-Levodopa 10-100] 1 tab PO TID 12/07/17 [History] Allopurinol [Zyloprim] 100 mg PO DAILY #30 tablet 05/03/18 [Rx] Past Medical History HEENT History: Reports: Cataract, Hard of Hearing, Other (See Below) Other HEENT History: blood vein broke in left eye - getting an injection in eye at [facility] Cardiovascular History: Reports: Arrhythmia, Bypass, CAD, High Cholesterol, Hypertension, [place], Other (See Below) Other Cardiovascular History: chronic ischemic heart disease Respiratory History: Reports: Other (See Below) Other Respiratory History: asbestos exposure Gastrointestinal History: Reports: GERD, Other (See Below) Other Gastrointestinal History: ulcers Genitourinary History: Reports: Prostate Disorder, Other (See Below) Other Genitourinary History: pain with movement in right kidney area for past 6 months Musculoskeletal History: Reports: Fracture, Gout, Osteoarthritis Neurological History: Reports: Neuropathy, Diabetic Endocrine/Metabolic History: Reports: Diabetes, Type II Hematologic History: Reports: Anticoagulation Therapy Oncologic (Cancer) History: Reports: Basal Cell Carcinoma Dermatologic History: 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 - Infectious Disease History Infectious Disease History: Reports: Chicken Pox, Influenza - Past Surgical History HEENT Surgical History: Reports: Cataract Surgery Cardiovascular Surgical History: Reports: Coronary Artery Bypass GI Surgical History: Reports: Cholecystectomy Musculoskeletal Surgical History: Reports: Hip Replacement, Other (See Below) Social & Family History - Family History Family Medical History: Noncontributory - Tobacco Use Smoking Status *Q: Never Smoker - Caffeine Use Caffeine Use: Reports: Coffee Caffeine Use Comment: drinks coffee twice a week - Recreational Drug Use Recreational Drug Use: No - Living Situation & Occupation Living situation: Reports: (lives with Kymberly in [place], [place]. His daughter lives in [place], [place].) Occupation: Retired ED ROS GENERAL - Review of Systems Review Of Systems: See Below Constitutional: Denies: Diaphoresis HEENT: Reports: No Symptoms Respiratory: Reports: No Symptoms Cardiovascular: Reports: No Symptoms GI/Abdominal: Reports: No Symptoms : Reports: No Symptoms Musculoskeletal: Reports: Shoulder Pain Skin: Reports: No Symptoms Neurological: Reports: No Symptoms ED EXAM, GENERAL - Physical Exam Exam: See Below Free Text/Narrative:: Examination of the right shoulder I don't appreciate any erythema there is no edema there is no specific point tenderness he has limited range of motion secondary to pain Exam Limited By: No Limitations General Appearance: Alert, WD/WN, No Apparent Distress Head: Atraumatic, Normocephalic Neck: Normal Inspection Respiratory/Chest: No Respiratory Distress, Lungs Clear, Normal Breath Sounds, No Accessory Muscle Use, Chest Non-Tender Cardiovascular: Regular Rate, Rhythm, Systolic Murmur GI/Abdominal: Soft, Non-Tender Course - Vital Signs Last Recorded V/S: Last Vital Signs Temp 95.9 F 08/20/18 11:27 Pulse 83 08/20/18 11:27 Resp 16 08/20/18 11:27 BP 154/74 H 08/20/18 11:27 Pulse Ox 97 08/20/18 11:27 - Orders/Labs/Meds Orders: Active Orders 24 hr Category Date Time Status Cardiac Monitoring [RC] .As Directed Care 08/20/18 11:43 Active EKG Documentation Completion [RC] ASDIRECTED Care 08/20/18 11:43 Active EKG 12 Lead [EK] Stat Ther 08/20/18 11:43 Ordered Labs: Laboratory Tests 08/20/18 08/20/18 08/20/18 Range/Units 11:55 11:55 11:55 WBC 8.0 (4.5-11.0) K/uL RBC 4.29 L (4.30-5.90) M/uL Hgb 13.4 (12.0-15.0) g/dL Hct 40.5 (40.0-54.0) % MCV 94 (80-98) fL MCH 31 (27-31) pg MCHC 33 (32-36) % Plt Count 198 (150-400) K/uL Neut % (Auto) 68 H (36-66) % Lymph % (Auto) 20 L (24-44) % [place] % (Auto) 10 H (2-6) % Eos % (Auto) 2 (2-4) % Baso % (Auto) 1 (0-1) % PT 19.3 H (9.5-12.0) sec INR 1.81 H (0.80-1.20) Sodium 136 L (140-148) mmol/L Potassium 4.5 (3.6-5.2) mmol/L Chloride 101 (100-108) mmol/L Carbon Dioxide 28 (21-32) mmol/L Anion Gap 11.5 (5.0-14.0) mmol/L BUN 22 H D (7-18) mg/dL Creatinine 1.3 (0.8-1.3) mg/dL Est Cr Clr Drug Dosing 37.43 mL/min Estimated GFR (MDRD) 52 L (>60) Glucose 140 H (74-106) mg/dL Calcium 9.0 (8.5-10.1) mg/dL Total Bilirubin 0.7 (0.2-1.0) mg/dL AST 23 (15-37) U/L ALT 18 (12-78) U/L Alkaline Phosphatase 76 (46-116) U/L Troponin I < 0.017 (0.000-0.056) ng/mL Total Protein 6.4 (6.4-8.2) g/dL Albumin 3.5 (3.4-5.0) g/dL Globulin 2.9 (2.3-3.5) g/dL Albumin/Globulin Ratio 1.2 (1.2-2.2) Meds: Medications Discontinued Medications Generic Name Dose Route Start Last Admin Trade Name Nikia PRN Reason Stop Dose Admin Ketorolac Tromethamine 30 mg 08/20/18 11:44 08/20/18 11:57 Toradol IM 08/20/18 11:45 30 mg ONETIME ONE Administration Departure - Departure Time of Disposition: 12:46 Disposition: Home, Self-Care 01 Condition: Fair Clinical Impression: Impingement syndrome of right shoulder - Discharge Information Referrals: Rome Russo MD [Primary Care Provider] - Forms: ED Department Discharge Additional Instructions: Recommend using ibuprofen for baseline pain control, for breakthrough pain use the Ultram. Please followup with your primary care provider in 3-5 days if not better, please call return to the emergency department with worsening of symptoms. - My Orders Last 24 Hours: My Active Orders 08/20/18 11:43 Cardiac Monitoring [RC] .As Directed EKG Documentation Completion [RC] ASDIRECTED EKG 12 Lead [EK] Stat - Assessment/Plan Last 24 Hours: My Active Orders 08/20/18 11:43 Cardiac Monitoring [RC] .As Directed EKG Documentation Completion [RC] ASDIRECTED EKG 12 Lead [EK] Stat Plan: Assessment Acuity = acute Site and laterality = right shoulder impingement syndrome Etiology = chronic underlying arthritis contributing to the problem Manifestations = none Location of injury = Home Lab values = x-rays describes the etiology above Plan He had good relief with Toradol injection plan is to try Ultram at home 50 mg by mouth 3 times a day when necessary total #15, have him follow-up with his primary care provider in the next 3-5 days for reevaluation consider physical therapy This note was dictated using [employer] voice recognition software please call with any questions on syntax or grammar.
--- NOTE | 2018-08-20 12:42 | CR ---
Shoulder Comp Rt CLINICAL HISTORY: Pain FINDINGS: There is no acute fracture or dislocation in the right shoulder. There is some spurring at the acromium which may cause impingement. There is also some osteoarthritic spurring in the glenohume ral joint. Impression: Osteoarthritic changes in the glenohumeral joint Possible impingement syndrome with acromial spurring
== END 2018-08-20 13:35 | disposition home or self-care (01) ==
LOC: JP.ED 10:25
DX: M75.41 Impingement syndrome of right shoulder (principal); I10 Essential (primary) hypertension; E11.9 Type 2 diabetes mellitus without complications; Z95.1 Presence of aortocoronary bypass graft; Z79.899 Other long term (current) drug therapy; Z91.018 Allergy to other foods
CPT/HCPCS: 36415; 73030; 80053; 84484; 85025; 85610; 93005; 96372; 99284; J1885

== ENCOUNTER 2019-05-19 10:55 | Observation (INO) | payer MEDICARE, BC ==
--- NOTE | 2019-05-19 12:02 | EDM.PDOC ---
ED HPI GENERAL MEDICAL PROBLEM - General Chief Complaint: Gastrointestinal Problem Stated Complaint: WEAK HAVE BEEN VOMITING STAYING IN BED Time Seen by Provider: 05/19/19 11:35 Source of Information: Reports: Patient, Family History Limitations: Reports: No Limitations - History of Present Illness INITIAL COMMENTS - FREE TEXT/NARRATIVE: 88-year-old male with chronic persistent nausea, daily emesis, increasing weakness and weight loss. He has been seen twice in the clinic since being discharged from the intermediate one month ago and is been treated with Zofran and has had some tests done. Apparently they've discussed an EGD if symptoms don 't improve but his daughter brought him in to the emergency room today because he seems to be just worsening. He has some abdominal discomfort but no fever or chills, denies diarrhea. He has emesis every morning when he gets up, yellow bilious emesis and then is nauseated with any oral intake during the day. He is also struggling with "gout" in his knees which is also being followed at the clinic. Duration: Week(s): (Symptoms have been ongoing for over a month) Associated Symptoms: Reports: Loss of Appetite, Malaise, Nausea/Vomiting, Weakness. Denies: Fever/Chills Bilateral Knee Pain Score (Numeric/FACES): 4 - Related Data Allergies Allergy/AdvReac Type Severity Reaction Status Date / Time strawberry Allergy Cannot Verified 05/02/18 14:12 Remember Home Meds: Home Meds Warfarin [Coumadin] 2.5 mg PO DAILY 05/17/14 [History] Nitroglycerin [Nitrostat] 0.4 mg SL ASDIRECTED PRN 08/16/14 [History] Carbidopa/Levodopa [Carbidopa-Levodopa 10-100] 1 tab PO BID 12/07/17 [History] Finasteride [Proscar] 5 mg PO DAILY 02/07/19 [History] Furosemide [Lasix] 40 mg PO DAILY 02/07/19 [History] Lisinopril 20 mg PO DAILY 02/07/19 [History] Pindolol 20 mg PO BID 02/07/19 [History] Pravastatin [Pravachol] 80 mg PO DAILY 02/07/19 [History] Warfarin [Coumadin] 2.5 mg PO ASDIRECTED 02/07/19 [History] Carbidopa/Levodopa [Carbidopa-Levodopa 10-100] 2 tab PO BEDTIME 05/19/19 [ History] Ondansetron [Ondansetron ODT] 4 mg PO Q8H PRN 05/19/19 [History] Pantoprazole [ProTONIX] 40 mg PO DAILY 05/19/19 [History] Past Medical History HEENT History: Reports: Cataract, Hard of Hearing, Impaired Vision, Other (See Below) Other HEENT History: blood vein broke in left eye - getting an injection in eye at [facility] Cardiovascular History: Reports: Afib, Arrhythmia, Bypass, CAD, High Cholesterol , Hypertension, [place], Other (See Below) Other Cardiovascular History: chronic ischemic heart disease Respiratory History: Reports: Other (See Below) Other Respiratory History: asbestos exposure Gastrointestinal History: Reports: GERD, Other (See Below) Other Gastrointestinal History: ulcers Genitourinary History: Reports: Other (See Below), Prostate Disorder, Urinary Incontinence Other Genitourinary History: pain with movement in right kidney area for past 6 months Musculoskeletal History: Reports: Fracture, Gout, Other (See Below), Osteoarthritis Neurological History: Reports: Neuropathy, Diabetic Endocrine/Metabolic History: Reports: Diabetes, Type II, Obesity/BMI 30+ Hematologic History: Reports: Anticoagulation Therapy Oncologic (Cancer) History: Reports: Basal Cell Carcinoma, Squamous Cell Carcinoma Dermatologic History: 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 - Infectious Disease History Infectious Disease History: Reports: Chicken Pox, Influenza - Past Surgical History Musculoskeletal Surgical History: Reports: Hip Replacement, Other (See Below) Social & Family History - Family History Family Medical History: Noncontributory - Tobacco Use Smoking Status *Q: Never Smoker - Caffeine Use Caffeine Use: Reports: Coffee Caffeine Use Comment: drinks coffee twice a week - Recreational Drug Use Recreational Drug Use: No - Living Situation & Occupation Living situation: Reports: (lives with Kymberly in [place], [place]. His daughter lives in [place], [place].) Occupation: Retired ED ROS GENERAL - Review of Systems Review Of Systems: See Below Constitutional: Reports: Malaise, Weakness, Decreased Appetite, Weight Loss. Denies: Fever, Chills HEENT: Reports: No Symptoms Respiratory: Denies: Shortness of Breath, Cough Cardiovascular: Denies: Chest Pain GI/Abdominal: Reports: Abdominal Pain, Constipation, Nausea, Vomiting : Reports: No Symptoms Neurological: Reports: Other (Parkinson's disease, slowly worsening symptoms) ED EXAM, GENERAL - Physical Exam Exam: See Below Exam Limited By: No Limitations General Appearance: Alert, No Apparent Distress, Other (Very flat affect, slow to respond) Eye Exam: Bilateral Eye: EOMI (No jaundice) Head: Atraumatic Respiratory/Chest: No Respiratory Distress, Lungs Clear Cardiovascular: Regular Rate, Rhythm, Extra Beats GI/Abdominal: Soft, Tender (Reacts with tenderness diffusely but no focal tenderness, no distention or mass felt) Extremities: Other (Somewhat thin and cachectic. No peripheral edema) Neurological: Alert, Oriented, No Motor/Sensory Deficits (Motor strength is weak but it is symmetric) Psychiatric: Flat Affect Skin Exam: Warm, Dry Course - Vital Signs Last Recorded V/S: Last Vital Signs Temp 96.6 F 05/20/19 02:07 Pulse 98 05/20/19 02:07 Resp 16 05/20/19 02:07 BP 166/95 H 05/20/19 02:07 Pulse Ox 97 05/20/19 02:07 - Orders/Labs/Meds Orders: Active Orders 24 hr Category Date Time Status CULTURE URINE [RM] Routine Lab 05/19/19 14:26 Results Medication Orders Acetaminophen (Tylenol) 650 mg PO Q4H PRN PRN Reason: Pain (Mild 1-3)/fever Allopurinol (Zyloprim) 100 mg PO DAILY [facility] Sodium Chloride (Normal Saline) 1,000 mls @ 75 mls/hr IV ASDIRECTED [facility] Last Admin: 05/19/19 16:34 Dose: 75 mls/hr Lorazepam (Ativan) 0.5 mg IVPUSH Q4H PRN PRN Reason: Nausea/Vomiting Magnesium Hydroxide (Milk Of Magnesia) 30 ml PO Q12H PRN PRN Reason: Constipation Melatonin (Melatonin) 9 mg PO BEDTIME [facility] Last Admin: 05/19/19 21:43 Dose: 9 mg Ondansetron HCl (Zofran Odt) 4 mg PO Q6H PRN PRN Reason: Nausea able to take PO Ondansetron HCl (Zofran) 4 mg IV Q6H PRN PRN Reason: Nausea/Vomiting Last Admin: 05/19/19 16:39 Dose: 4 mg Polyethylene Glycol (Miralax) 17 gm PO DAILY PRN PRN Reason: Constipation Senna/Docusate Sodium (Senna Plus) 1 tab PO BID PRN PRN Reason: Constipation Labs: Laboratory Tests 05/19/19 05/19/19 05/19/19 Range/Units 11:45 11:45 11:45 WBC 10.2 (4.5-11.0) K/uL RBC 5.12 (4.30-5.90) M/uL Hgb 15.7 H D (12.0-15.0) g/dL Hct 47.3 (40.0-54.0) % MCV 92 (80-98) fL MCH 31 (27-31) pg MCHC 33 (32-36) % Plt Count 222 (150-400) K/uL Neut % (Auto) 67 H (36-66) % Lymph % (Auto) 22 L (24-44) % [place] % (Auto) 9 H (2-6) % Eos % (Auto) 2 (2-4) % Baso % (Auto) 0 (0-1) % PT 18.7 H (9.5-12.0) sec INR 1.75 H (0.80-1.20) Sodium 140 (140-148) mmol/L Potassium 3.4 L (3.6-5.2) mmol/L Chloride 97 L (100-108) mmol/L Carbon Dioxide 32 (21-32) mmol/L Anion Gap 14.4 H (5.0-14.0) mmol/L BUN 37 H D (7-18) mg/dL Creatinine 1.3 (0.8-1.3) mg/dL Est Cr Clr Drug Dosing 37.43 mL/min Estimated GFR (MDRD) 52 L (>60) Glucose 159 H (74-106) mg/dL Calcium 9.7 (8.5-10.1) mg/dL Total Bilirubin 1.3 H D (0.2-1.0) mg/dL AST 34 D (15-37) U/L ALT 37 D (12-78) U/L Alkaline Phosphatase 85 (46-116) U/L Troponin I 0.030 (0.000-0.056) ng/mL Total Protein 6.8 (6.4-8.2) g/dL Albumin 3.5 (3.4-5.0) g/dL Globulin 3.3 (2.3-3.5) g/dL Albumin/Globulin Ratio 1.1 L (1.2-2.2) Lipase 49 L (73-393) U/L Urine Color Urine Appearance Urine pH (4.5-8.0) Ur Specific Farrell (1.008-1.030) Urine Protein (NEGATIVE) mg/dL Urine Glucose (UA) (NEGATIVE) mg/dL Urine Ketones (NEGATIVE) mg/dL Urine Occult Blood (NEGATIVE) Urine Nitrite (NEGAITVE) Urine Bilirubin (NEGATIVE) Urine Urobilinogen (NORMAL) mg/dL Ur Leukocyte Esterase (NEGATIVE) Urine RBC (0-5) Urine WBC (0-5) Ur Epithelial Cells Amorphous Sediment Urine Bacteria Urine Mucus 05/19/19 Range/Units 11:58 WBC (4.5-11.0) K/uL RBC (4.30-5.90) M/uL Hgb (12.0-15.0) g/dL Hct (40.0-54.0) % MCV (80-98) fL MCH (27-31) pg MCHC (32-36) % Plt Count (150-400) K/uL Neut % (Auto) (36-66) % Lymph % (Auto) (24-44) % [place] % (Auto) (2-6) % Eos % (Auto) (2-4) % Baso % (Auto) (0-1) % PT (9.5-12.0) sec INR (0.80-1.20) Sodium (140-148) mmol/L Potassium (3.6-5.2) mmol/L Chloride (100-108) mmol/L Carbon Dioxide (21-32) mmol/L Anion Gap (5.0-14.0) mmol/L BUN (7-18) mg/dL Creatinine (0.8-1.3) mg/dL Est Cr Clr Drug Dosing mL/min Estimated GFR (MDRD) (>60) Glucose (74-106) mg/dL Calcium (8.5-10.1) mg/dL Total Bilirubin (0.2-1.0) mg/dL AST (15-37) U/L ALT (12-78) U/L Alkaline Phosphatase (46-116) U/L Troponin I (0.000-0.056) ng/mL Total Protein (6.4-8.2) g/dL Albumin (3.4-5.0) g/dL Globulin (2.3-3.5) g/dL Albumin/Globulin Ratio (1.2-2.2) Lipase (73-393) U/L Urine Color Yellow Urine Appearance Cloudy Urine pH 5.0 (4.5-8.0) Ur Specific Farrell 1.015 (1.008-1.030) Urine Protein Trace (NEGATIVE) mg/dL Urine Glucose (UA) Normal (NEGATIVE) mg/dL Urine Ketones Negative (NEGATIVE) mg/dL Urine Occult Blood Moderate (NEGATIVE) Urine Nitrite Negative (NEGAITVE) Urine Bilirubin Negative (NEGATIVE) Urine Urobilinogen Normal (NORMAL) mg/dL Ur Leukocyte Esterase Large (NEGATIVE) Urine RBC 0-5 (0-5) Urine WBC 5-10 H (0-5) Ur Epithelial Cells Moderate Amorphous Sediment Few Urine Bacteria Moderate Urine Mucus Few Meds: Medications Generic Name Dose Route Start Last Admin Trade Name Freq PRN Reason Stop Dose Admin Acetaminophen 650 mg 05/19/19 15:58 Tylenol PO Q4H PRN Pain (Mild 1-3)/fever Allopurinol 100 mg 05/20/19 09:00 Zyloprim PO DAILY [facility] Sodium Chloride 1,000 mls @ 75 mls/hr 05/19/19 15:58 05/19/19 16:34 Normal Saline IV 75 mls/hr ASDIRECTED [facility] Administration Lorazepam 0.5 mg 05/19/19 15:58 Ativan IVPUSH Q4H PRN Nausea/Vomiting Magnesium Hydroxide 30 ml 05/19/19 15:58 Milk Of Magnesia PO Q12H PRN Constipation Melatonin 9 mg 05/19/19 21:00 05/19/19 21:43 Melatonin PO 9 mg BEDTIME [facility] Administration Ondansetron HCl 4 mg 05/19/19 15:58 Zofran Odt PO Q6H PRN Nausea able to take PO Ondansetron HCl 4 mg 05/19/19 15:58 05/19/19 16:39 Zofran IV 4 mg Q6H PRN Administration Nausea/Vomiting Polyethylene Glycol 17 gm 05/19/19 15:58 Miralax PO DAILY PRN Constipation Senna/Docusate Sodium 1 tab 05/19/19 15:58 Senna Plus PO BID PRN Constipation Discontinued Medications Generic Name Dose Route Start Last Admin Trade Name Nikia PRN Reason Stop Dose Admin Potassium Chloride 20 meq/ 112 mls @ 56 mls/hr 05/19/19 17:00 05/19/19 20:12 Lidocaine HCl 2 ml/ Sodium IV 05/19/19 20:59 56 mls/hr Chloride Q2H [facility] Administration Phytonadione 1 mg/ Sodium 50.5 mls @ 100 mls/hr 05/19/19 17:00 05/19/19 17:14 Chloride IV 05/19/19 17:30 100 mls/hr ONETIME ONE Administration Pantoprazole Sodium 40 mg 05/19/19 17:00 05/19/19 17:14 Protonix Iv IV 05/19/19 17:01 40 mg ONETIME ONE Administration - Re-Assessments/Exams Free Text/Narrative Re-Assessment/Exam: 05/19/19 12:01 A UA was obtained, as well as a CBC, CMP and lipase. A CT of the patient's abdomen may be needed before deciding if admission is necessary. 05/19/19 14:02 Labs returned showing no specific etiology for abdominal pain or nausea. A CT the abdomen and pelvis was obtained which also was read as basically normal. I had a talk with the patient and his family about his persistent symptoms and the need for further workup, they were uncomfortable with him going home and wanted his EGD or possibly a bowel follow-through x-ray done as an inpatient. I discussed this with Dr. Dumont and he kindly agreed to visit with the family and consider admission for further evaluation and treatment. Departure - Departure Time of Disposition: 15:51 Disposition: Admitted As Inpatient 67 Clinical Impression: Nausea and vomiting in adult, Abdominal pain - Discharge Information
--- NOTE | 2019-05-19 13:50 | CRLCT ---
INDICATION: Chronic vomiting. TECHNIQUE: Noncontrast CT scan of the abdomen and pelvis. FINDINGS: Calcified pleural plaques in the lung bases. Small area of probable fatty infiltration in the liver adjacent to the fissure for the falciform ligament. No other focal abnormalities identified in the visualized portions of the liver, spleen, pancreas, adrenal glands, and kidneys. No hydronephrosis. No uroliths. Mild colonic diverticulosis with no evidence of diverticulitis. The remainder of the GI tract is incompletely distended but shows no gross abnormalities. The stomach and GE junction are not well assessed. Normal appendix. No retroperitoneal, pelvic sidewall, or mesenteric adenopathy. Atherosclerotic vascular calcifications. 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 No retroperitoneal, pelvic sidewall, or mesenteric adenopathy. Degenerative changes of the spine. Right hip arthroplasty. IMPRESSION: 1. No acute abnormalities of the abdomen or pelvis identified. 2. Mild aneurysmal dilatation of the abdominal aorta. Please note that all CT scans at this facility use dose modulation, iterative reconstruction, and/or weight-based dosing when appropriate to reduce radiation dose to as low as reasonably achievable. Dictated by Gagan Campos MD @ May 19 2019 1:47PM Signed by Dr. Gagan Campos @ May 19 2019 1:47PM
--- NOTE | 2019-05-19 15:22 | PCM.HP ---
H&P History of Present Illness - General Date of Service: 05/19/19 Admit Problem/Dx: Admission Diagnosis/Problem Admission Diagnosis/Problem Nausea and vomiting Source of Information: Patient, Family, Provider History Limitations: Reports: No Limitations - History of Present Illness Initial Comments - Free Text/Narative: CC: I can't eat HPI: Sam presents to the emergency room with his and daughter with concerns about a significant weight loss over the past several months as well as daily episodes of nausea and vomiting. He reports more than 60 pound weight loss over the past several months. This weight loss has been unintentional. He has essentially no appetite and when he does eat he often becomes nauseated fairly quickly and then vomits the food back up. This happens with solids and liquids. He has been able to tolerate small quantities of cream soup and watermelon. The symptoms have progressed fairly quickly over the past month or so. He reports difficulties with obstipation and hard stools. He last had laxatives and a bowel movement about 5 days ago. He has very little energy. Functional status is very limited at this time and is compromised mostly of transferring from bed to wheelchair back. He does not complain of shortness of breath. He does not complaining of any abdominal pain. He has quit taking most of his medications recently and is taking his allopurinol and pantoprazole regularly but has stopped taking most of his other medications. Last week he had difficulty with what he calls gout in his knees and was treated with steroids and had resolution of his knee pain. He sleeps most of the day. Workup in the emergency room included laboratory studies and a CT scan of the abdomen and pelvis. Laboratory studies studies revealed mild hypokalemia and stage III a kidney disease which is likely his baseline but was otherwise fairly unremarkable. A CT scan of the abdomen and pelvis was unremarkable. He will be admitted for observation and expedited workup. Bilateral Knee Pain Score (Numeric/FACES): 4 - Related Data Allergies/Adverse Reactions: Allergies Allergy/AdvReac Type Severity Reaction Status Date / Time strawberry Allergy Cannot Verified 05/02/18 14:12 Remember Home Medications: Home Meds Warfarin [Coumadin] 2.5 mg PO DAILY 05/17/14 [History] Nitroglycerin [Nitrostat] 0.4 mg SL ASDIRECTED PRN 08/16/14 [History] Carbidopa/Levodopa [Carbidopa-Levodopa 10-100] 1 tab PO BID 12/07/17 [History] Finasteride [Proscar] 5 mg PO DAILY 02/07/19 [History] Furosemide [Lasix] 40 mg PO DAILY 02/07/19 [History] Lisinopril 20 mg PO DAILY 02/07/19 [History] Pindolol 20 mg PO BID 02/07/19 [History] Pravastatin [Pravachol] 80 mg PO DAILY 02/07/19 [History] Warfarin [Coumadin] 2.5 mg PO ASDIRECTED 02/07/19 [History] Carbidopa/Levodopa [Carbidopa-Levodopa 10-100] 2 tab PO BEDTIME 05/19/19 [ History] Ondansetron [Ondansetron ODT] 4 mg PO Q8H PRN 05/19/19 [History] Pantoprazole [ProTONIX] 40 mg PO DAILY 05/19/19 [History] Past Medical History HEENT History: Reports: Cataract, Hard of Hearing, Impaired Vision, Other (See Below) Other HEENT History: blood vein broke in left eye - getting an injection in eye at [facility] Cardiovascular History: Reports: Afib, Arrhythmia, Bypass, CAD, High Cholesterol , Hypertension, AL, Other (See Below) Other Cardiovascular History: chronic ischemic heart disease Respiratory History: Reports: Other (See Below) Other Respiratory History: asbestos exposure Gastrointestinal History: Reports: GERD, Other (See Below) Other Gastrointestinal History: ulcers Genitourinary History: Reports: Other (See Below), Prostate Disorder, Urinary Incontinence Other Genitourinary History: pain with movement in right kidney area for past 6 months Musculoskeletal History: Reports: Fracture, Gout, Other (See Below), Osteoarthritis Neurological History: Reports: Neuropathy, Diabetic Endocrine/Metabolic History: Reports: Diabetes, Type II, Obesity/BMI 30+ Hematologic History: Reports: Anticoagulation Therapy Oncologic (Cancer) History: Reports: Basal Cell Carcinoma, Squamous Cell Carcinoma Dermatologic History: 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 - Infectious Disease History Infectious Disease History: Reports: Chicken Pox, Influenza - Past Surgical History Musculoskeletal Surgical History: Reports: Hip Replacement, Other (See Below) Social & Family History - Family History Family Medical History: Noncontributory - Tobacco Use Smoking Status *Q: Never Smoker - Caffeine Use Caffeine Use: Reports: Coffee Caffeine Use Comment: drinks coffee twice a week - Alcohol Use Alcohol Use History: No - Recreational Drug Use Recreational Drug Use: No - Living Situation & Occupation Living situation: Reports: (lives with Kymberly in [place], [place]. His daughter lives in [place], [place].) Occupation: Retired H&P Review of Systems - Review of Systems: Review Of Systems: See Below Free Text/Narrative: A complete 12 point review of systems was obtained. Pertinent positives and negatives are noted in the history of present illness. All other systems were reviewed and were negative except as noted. Exam - Exam Exam: See Below - Vital Signs Vital Signs: Last Vital Signs Temp 35.8 C 05/19/19 13:42 Pulse 102 H 05/19/19 13:42 Resp BP 135/96 H 05/19/19 13:42 Pulse Ox 97 05/19/19 13:42 Weight: 72 kg - Exam Quality Assessment: No: Supplemental Oxygen General: Alert, Oriented, Cooperative. No: Mild Distress HEENT: Conjunctiva Clear. No: Mucosa Moist & [place] (dry), Scleral Icterus Neck: Supple, Trachea Midline. No: Lymphadenopathy Lungs: Clear to Auscultation, Normal Respiratory Effort Cardiovascular: Regular Rate, Regular Rhythm, Systolic Murmur GI/Abdominal Exam: Normal Bowel Sounds, Soft, Non-Tender, No Distention, No Mass Extremities: No Pedal Edema. No: Increased Warmth Peripheral Pulses: 1+: Dorsalis Pedis (L), Dorsalis Pedis (R) Skin: Warm, Dry Neuro Extensive - Mental Status: Alert, Oriented x3, Slow Response to Commands Neuro Extensive - Motor, Sensory, Reflexes: Tremor. No: Dysarthria, Abnormal Motor Psychiatric: Alert, Normal Affect, Other (Patient repeated himself several times ) - Patient Data Lab Results Last 24 hrs: Laboratory Results - last 24 hr 05/19/19 05/19/19 05/19/19 Range/Units 11:45 11:45 11:58 WBC 10.2 (4.5-11.0) K/uL RBC 5.12 (4.30-5.90) M/uL Hgb 15.7 H D (12.0-15.0) g/dL Hct 47.3 (40.0-54.0) % MCV 92 (80-98) fL MCH 31 (27-31) pg MCHC 33 (32-36) % Plt Count 222 (150-400) K/uL Neut % (Auto) 67 H (36-66) % Lymph % (Auto) 22 L (24-44) % [place] % (Auto) 9 H (2-6) % Eos % (Auto) 2 (2-4) % Baso % (Auto) 0 (0-1) % Sodium 140 (140-148) mmol/L Potassium 3.4 L (3.6-5.2) mmol/L Chloride 97 L (100-108) mmol/L Carbon Dioxide 32 (21-32) mmol/L Anion Gap 14.4 H (5.0-14.0) mmol/L BUN 37 H D (7-18) mg/dL Creatinine 1.3 (0.8-1.3) mg/dL Est Cr Clr Drug Dosing 37.43 mL/min Estimated GFR (MDRD) 52 L (>60) Glucose 159 H (74-106) mg/dL Calcium 9.7 (8.5-10.1) mg/dL Total Bilirubin 1.3 H D (0.2-1.0) mg/dL AST 34 D (15-37) U/L ALT 37 D (12-78) U/L Alkaline Phosphatase 85 (46-116) U/L Troponin I 0.030 (0.000-0.056) ng/mL Total Protein 6.8 (6.4-8.2) g/dL Albumin 3.5 (3.4-5.0) g/dL Globulin 3.3 (2.3-3.5) g/dL Albumin/Globulin Ratio 1.1 L (1.2-2.2) Lipase 49 L (73-393) U/L Urine Color Yellow Urine Appearance Cloudy Urine pH 5.0 (4.5-8.0) Ur Specific [place] 1.015 (1.008-1.030) Urine Protein Trace (NEGATIVE) mg/dL Urine Glucose (UA) Normal (NEGATIVE) mg/dL Urine Ketones Negative (NEGATIVE) mg/dL Urine Occult Blood Moderate (NEGATIVE) Urine Nitrite Negative (NEGAITVE) Urine Bilirubin Negative (NEGATIVE) Urine Urobilinogen Normal (NORMAL) mg/dL Ur Leukocyte Esterase Large (NEGATIVE) Urine RBC 0-5 (0-5) Urine WBC 5-10 H (0-5) Ur Epithelial Cells Moderate Amorphous Sediment Few Urine Bacteria Moderate Urine Mucus Few Result Diagrams: 05/19/19 11:45 05/19/19 11:45 Imaging Impressions Last 24 hrs: CT scan of the abdomen and pelvis - images personally reviewed - no acute intra- abdominal pathology. No obvious masses or lymphadenopathy. Pancreas appeared normal. Gallbladder appeared normal. *Q Meaningful Use (ADM) - VTE *Q VTE Pharmacological Contraindications *Q: Patient Scheduled Surgery - VTE Risk Assess *Q Each Risk Factor Represents 1 Point: None Total Score 1 Point Risk Factors: 0 Each Risk Factor Represents 2 Points: None Total Score 2 Point Risk Factors: 0 Each Risk Factor Represents 3 Points: Age 75 Years or Greater Total Score 3 Point Risk Factors: 3 Each Risk Factor Represents 5 Points: None Total Score 5 Point Risk Factors: 0 Venous Thromboembolism Risk Factor Score *Q: 3 - Problem List (1) Nausea and vomiting in adult SNOMED Code(s): 17765108 ICD Code: R11.2 - NAUSEA WITH VOMITING, UNSPECIFIED Status: Acute Current Visit: Yes (2) 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 SNOMED Code(s): 918740470 ICD Code: N40.0 - BENIGN PROSTATIC HYPERPLASIA WITHOUT LOWER URINRY TRACT SYMP Status: Chronic Current Visit: No (3) Parkinson's syndrome SNOMED Code(s): 94562727 ICD Code: G20 - PARKINSON'S DISEASE Status: Chronic Current Visit: No Problem List Initiated/Reviewed/Updated: Yes Orders Last 24hrs: Active Orders 24 hr Category Date Time Status Patient Status Manage Transfer [TRANSFER] Routine ADT 05/19/19 15:11 Ordered CULTURE URINE [RM] Routine Lab 05/19/19 14:26 Received INR,PT,PROTHROMBIN TIME [[facility]] Urgent Lab 05/19/19 11:45 Received Resuscitation Status Routine Resus Stat 05/19/19 15:13 Ordered Assessment/Plan Comment:: ASSESSMENT AND PLAN - Persistent nausea and vomiting - multiple episodes of nausea and intermittent episodes of vomiting daily for the past 3-4 weeks. Labs fairly unremarkable and CT was unrevealing. This may be a progression of his Parkinson's disease. He does have a history of gastric ulcers. -Symptomatic management for nausea -EGD in the morning -Small bowel follow-through after the EGD -Discuss additional management based on results (?lubiprostone vs metoclopramide ?) Hypokalemia - mild and will be replaced this afternoon Parkinson's disease - long-standing history of Parkinson's though exam relatively benign other than a mild tremor. No significant cogwheeling rigidity at this time. He has been off medications for more than 2 weeks. Chronic atrial fibrillation - patient has been chronically anticoagulated. INR 1.75. -Hold warfarin -1 mg of vitamin K today -INR in the morning History of ischemic heart disease - patient has not been taking the pressure medication her beta kalyn recently. BPH with lower urinary tract symptoms - he has recently quit taking both his fine asked right and tamsulosin. He does not report any urinary symptoms at this time. Maintenance issues - - DVT prophylaxis - mechanical - GI prophylaxis - IV PPI - Nutrition - mechanical soft now, nothing by mouth after midnight - Reveles catheter - not indicated CODE STATUS - DNR/DNI Admission justification - patient will be referred observation status for symptom management and expedited workup Disposition - I would anticipate discharge home tomorrow Primary care physician - Dr. Karan Dumont M.D.
[2019-05-19] MEDS ORDERED: Ondansetron 4 MG Tab.DIS PO PRN (15:58)
[2019-05-19] MEDS ORDERED: Polyethylene Glycol 3350 Powder 17 GM Packet PO PRN (15:58)
[2019-05-19] MEDS ORDERED: Ondansetron 4 MG/2 ML SDV IV PRN (15:58)
[2019-05-19] MEDS ORDERED: Magnesium Hydroxide 400 MG/5 ML Susp 30 ML Cup PO PRN (15:58)
[2019-05-19] MEDS ORDERED: LORazepam 2 MG/ML SDV IVPUSH PRN (15:58)
[2019-05-19] MEDS ORDERED: Acetaminophen 325 MG Tab PO PRN (15:58)
[2019-05-19] MEDS: Sodium Chloride 0.9% 1,000 ML IV SCH (16:34)
[2019-05-19] MEDS ORDERED: Phytonadione 1 MG in Sodium Chloride 0.9% 50 ML IV ONE (17:00)
[2019-05-19] MEDS ORDERED: Pantoprazole 40 MG Vial IV ONE (17:00)
[2019-05-19] MEDS: Potassium Chloride 20 MEQ, Lidocaine 1% 2 ML in Sodium Chloride 0.9% 100 ML IV SCH ×2 (17:15→20:12)
[2019-05-19] MEDS ORDERED: Melatonin 3 MG Tab PO SCH (21:00)
[2019-05-20] MEDS ORDERED: Propofol 200 MG/20 ML SDV ONE (07:09)
[2019-05-20] MEDS ORDERED: cefTRIAXone 2 GM in Sodium Chloride 0.9% 50 ML IV ONE (09:00)
[2019-05-20] MEDS ORDERED: Allopurinol 100 MG Tab PO SCH (09:00)
[2019-05-20 11:10] VITALS: BP 118/74
--- NOTE | 2019-05-20 13:28 | OR ---
DATE OF PROCEDURE: 05/20/2019 PREOPERATIVE DIAGNOSIS: Nausea, vomiting, and weight loss. POSTOPERATIVE DIAGNOSIS: Nausea, vomiting, and weight loss with: 1. Small hiatal hernia, but without any gross inflammation at the area of esophagogastric junction. 2. Very minimal antral gastritis and proximal duodenitis. PROCEDURE: Upper GI endoscopy with antral biopsies for CLOtest. ANESTHESIA: IV sedation. INDICATION FOR PROCEDURE: This is an 88-year-old with advancing parkinsonism, presenting with nausea, vomiting, and weight loss. A CT scan was obtained yesterday, which was unremarkable. He is to undergo an upper GI endoscopy for diagnostic purposes. Potential risks of the procedure have been reviewed with the patient's guardian and they wished to proceed. DETAILS OF PROCEDURE: The patient was taken to the operating room and placed in a left lateral decubitus position. IV sedation was administered after which the upper GI endoscope was passed orally through the length of the esophagus and the stomach with retroflexion view of the fundus, and thereafter through the pyloric channel into the junction of the third and fourth portions of the duodenum. FINDINGS: Included normal hypopharynx, larynx, upper esophageal sphincter, and esophageal body. At the EG junction, there was a small perhaps 1 to 2 cm hiatal hernia, but the distal esophageal mucosa was entirely normal and completely supple and not inflamed in appearance. Within the stomach, apart from this, some very mild redness in the mid pre-pyloric area that was unremarkable. The pyloric channel and proximal duodenum likewise had some very mild gross redness and edema of the mucosa. Beyond that, the duodenal findings normalized. Biopsies were then obtained from the antrum and sent for CLOtest for H. pylori. Minimal bleeding from the biopsy site was seen, and the procedure was then concluded. At this point, there is no explanation for the patient's nausea and vomiting based on the upper GI endoscopic findings. Order had been placed to do an upper GI small-bowel follow-through x-ray. This would not be something that could be done by the radiologist. We can do this using the Gordon- en-Y gastric bypass protocol and then follow the x-rays every half hour until the contrast gets into the colon so as to get some idea how his GI tract motility is. Because of the risk of aspiration with water-soluble contrast, we reduced the barium-base contrast. Ky Long MD /[id number]
[2019-05-20] MEDS ORDERED: Barium Sulfate 98% Powder for Susp 340 GM Bottle PO PRN (14:21)
[2019-05-20] MEDS: Magnesium Hydroxide 400 MG/5 ML Susp 30 ML Cup PO SCH ×2 (14:26→15:59)
[2019-05-20] MEDS: Sodium Chloride 0.9% 1,000 ML IV SCH (14:29)
--- NOTE | 2019-05-20 15:30 | CRLCR ---
INDICATION: Persistent nausea and emesis. Follow-up from EGD. COMPARISON: None available. FINDINGS: A small bowel follow-through is performed. The patient swallows 100 cc of small-bowel barium. Images are obtained at 10 minutes, 45 minutes, 1 hour 15 minutes, 2 hours 15 minutes, 3 hours 30 minutes, and 4 hours 30 minutes. There is prompt passage of small bowel through the nondistended stomach into the proximal small bowel. At 15 minutes, the barium column has reached the right lower quadrant and has reached the proximal ileum. There is slow passage of barium through the ileum over the next 4 hours, with the barium not reaching the cecum at the conclusion of the study. There is no sign of any small bowel dilatation. There is no significant residual barium in the stomach. Surgical clips are seen in the right upper quadrant consistent with cholecystectomy. There are calcified pleural plaques in the left lung base consistent with previous asbestos exposure. The lung bases are otherwise clear. There is mild scoliosis of the lumbar spine convex towards the right with prominent disc degenerative disease in the inferior lumbar spine. The components of a right total hip prosthesis are in anatomic alignment. There is mild primary osteoarthritis of the left hip. IMPRESSION: No sign of small bowel obstruction, with prompt passage of barium from the stomach through the nondilated proximal and mid small bowel. Slow transit of barium through the nondilated ileum, with contrast not yet in the colon at 4 hours 15 minutes. Dictated by Dejon Mackey MD @ May 20 2019 3:15PM Signed by Dr. Dejon Mackey @ May 20 2019 3:28PM
--- NOTE | 2019-05-20 15:33 | PCM.DCSUM1 ---
Discharge Summary - Hospital Course Brief History: 88-year-old male with history of Parkinson's disease, BPH with lower urinary tract symptoms and CAD who prsented with persistent nausea and intermittent vomiting as well as a significant weight loss over the past several months. He was admitted for expedited workup with persistent symptoms and significant weight loss. Diagnosis: Stroke: No - Discharge Data Discharge Date: 05/20/19 Discharge Disposition: Home, W Home Health Agency 06 Condition: Fair - Discharge Diagnosis/Problem(s) (1) Nausea and vomiting in adult SNOMED Code(s): 48480367 ICD Code: R11.2 - NAUSEA WITH VOMITING, UNSPECIFIED Status: Acute Current Visit: Yes (2) Parkinson's syndrome SNOMED Code(s): 79252468 ICD Code: G20 - PARKINSON'S DISEASE Status: Chronic Current Visit: No (3) 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 SNOMED Code(s): 045066249 ICD Code: N40.0 - BENIGN PROSTATIC HYPERPLASIA WITHOUT LOWER URINRY TRACT SYMP Status: Chronic Current Visit: No - Patient Summary/Data Consults: Consultations 05/19/19 15:58 Consult to Physician [CONS] Routine Consulting Provider: Ky Long Call Completed to Consulting Physician: Yes Reason for Consult: recurrent nausea and emesis Person Notified: HYATT Date Notified: 05/19/19 Special Instructions: EGD in the morning at 7:15 Hospital Course: Sam presented to the emergency room with several weeks of persistent nausea and intermittent vomiting as well as an unintentional weight loss of or than 50 pounds over the past several months. Workup in the emergency room was fairly reassuring with a normal CT scan of the abdomen and pelvis as well as fairly normal laboratory studies other than stage III chronic kidney disease that was mild. Given the duration of symptoms and severity of weight loss the patient was admitted to the hospital for expedited workup. He did receive IV fluid hydration overnight. By the day after admission he reports his nausea is a fair amount better and he has not had any episodes of vomiting though he has not had anything to eat. The morning after admission he did have an EGD which did not show any acute pathology other than maybe some very very mild gastritis. He had a small bowel study with barium that revealed normal transit from the stomach to the small intestine but then very slow transit through the small intestine. There is no evidence for obstruction. I suspect that his persistent nausea and intermittent vomiting are related to his Parkinson's disease with autonomic dysfunction. There is no evidence for obstruction at this time. The patient is interested in a trial of a regular laxative such as MiraLAX and he will try to increase his activity little bit as well as drinks more water to remain hydrated. If these methods should fail additional medication trials could include metoclopramide or lubiprostone. Alternatively this may represent the beginning of the end-stage of his disease with progressive autonomic dysfunction in the setting of long-standing Parkinson's disease. He is interested in going home today to try these interventions. Family is in agreement with the plan. Also of note was his urine culture on the day of discharge was growing gram- negative rods. Urine sample at the time of presentation was not impressive for infection but with the culture growing gram-negative rods I did elect to start antibiotics this morning. I will be contacting him tomorrow when the culture is available to prescribe additional outpatient antibiotics. - Patient Instructions Diet: Regular Diet as Tolerated Activity: As Tolerated Showering/Bathing: May Shower Notify Provider of: Fever, Increased Pain, Nausea and/or Vomiting Other/Special Instructions: 1. You were in the hospital for management of persistent nausea with episodes of vomiting. I suspect that these episodes are related to chronic constipation and your Parkinson's disease with possible contribution from chronic dehydration. To help schuler these ailments I would first recommend that you drink 64 ounces of water each day. Secondly, I would recommend that you try to increase your activity as tolerated as walking can help to keep the bowels moving more effectively. Thirdly, I would recommend that you take Miralax 17 g twice daily with the goal of having one or two soft bowel movements each day. If these interventions are not effective additional medications such as metoclopramide or lubiprostone could be considered. 2. Continue your other home medications as previously prescribed. 3. Follow up with Dr. Russo next week as scheduled. 4. Please continue previous home care orders including nursing and physical therapy. You will be due to have your INR checked on Saturday, May 22. Regarding your Coumadin, please take 5 mg tomorrow at your usual Coumadin dosing time. 5. Seek medical attention if you have fever greater than 101, persistent vomiting or severe abdominal pain. 6. I will contact you tomorrow morning with results from the x-ray study as well as your urine culture. Antibiotics will likely be prescribed at that time to complete treatment for a urinary tract infection. - Discharge Plan *PRESCRIPTION DRUG MONITORING PROGRAM REVIEWED*: Not Applicable *COPY OF PRESCRIPTION DRUG MONITORING REPORT IN PATIENT BEN: Not Applicable Prescriptions/Med Rec: Polyethylene Glycol 3350 [MiraLAX] 17 gm PO BID #2 cont Home Medications: Home Meds Warfarin [Coumadin] 2.5 mg PO DAILY 05/17/14 [History] Nitroglycerin [Nitrostat] 0.4 mg SL ASDIRECTED PRN 08/16/14 [History] Carbidopa/Levodopa [Carbidopa-Levodopa 10-100] 1 tab PO BID 12/07/17 [History] Finasteride [Proscar] 5 mg PO DAILY 02/07/19 [History] Furosemide [Lasix] 40 mg PO DAILY 02/07/19 [History] Lisinopril 20 mg PO DAILY 02/07/19 [History] Pindolol 20 mg PO BID 02/07/19 [History] Pravastatin [Pravachol] 80 mg PO DAILY 02/07/19 [History] Warfarin [Coumadin] 2.5 mg PO ASDIRECTED 02/07/19 [History] Carbidopa/Levodopa [Carbidopa-Levodopa 10-100] 2 tab PO BEDTIME 05/19/19 [ History] Ondansetron [Ondansetron ODT] 4 mg PO Q8H PRN 05/19/19 [History] Pantoprazole [ProTONIX] 40 mg PO DAILY 05/19/19 [History] Polyethylene Glycol 3350 [MiraLAX] 17 gm PO BID #2 cont 05/20/19 [Rx] Oxygen Therapy Mode: Room Air Patient Handouts: Nausea, Adult, [id number], Constipation, Adult Referrals: Rome Russo MD [Primary Care Provider] - 05/29/19 1:30 pm (Please arrive 15 minutes meg to register for appointment.) - Discharge Summary/Plan Comment DC Time >30 min.: Yes (35 - setting up home care ) - Patient Data Vitals - Most Recent: Last Vital Signs Temp 35.3 C 05/20/19 11:05 Pulse 92 05/20/19 11:05 Resp 16 05/20/19 11:05 BP 118/74 05/20/19 11:05 Pulse Ox 97 05/20/19 11:05 Weight - Most Recent: 72 kg I&O - Last 24 hours: Intake & Output 05/20/19 05/20/19 05/20/19 06:59 14:59 22:59 Intake Total 853 Output Total 176 Balance 677 Lab Results - Last 24 hrs: Laboratory Results - last 24 hr 05/20/19 05/20/19 05/20/19 Range/Units 04:25 04:25 04:25 WBC 8.2 (4.5-11.0) K/uL RBC 4.74 (4.30-5.90) M/uL Hgb 14.4 (12.0-15.0) g/dL Hct 44.2 (40.0-54.0) % MCV 93 (80-98) fL MCH 30 (27-31) pg MCHC 33 (32-36) % Plt Count 191 (150-400) K/uL PT 14.4 H (9.5-12.0) sec INR 1.33 H (0.80-1.20) Sodium 140 (140-148) mmol/L Potassium 3.8 (3.6-5.2) mmol/L Chloride 101 (100-108) mmol/L Carbon Dioxide 29 (21-32) mmol/L Anion Gap 9.7 (5.0-14.0) mmol/L BUN 34 H (7-18) mg/dL Creatinine 1.3 (0.8-1.3) mg/dL Est Cr Clr Drug Dosing 37.34 mL/min Estimated GFR (MDRD) 52 L (>60) Glucose 133 H (74-106) mg/dL Calcium 9.2 (8.5-10.1) mg/dL FELISHA Results - Last 24 hrs: Microbiology 05/19/19 14:26 Urine Culture - Preliminary Urine, Clean Catch Med Orders - Current: Current Medications Acetaminophen (Tylenol) 650 mg PO Q4H PRN PRN Reason: Pain (Mild 1-3)/fever Allopurinol (Zyloprim) 100 mg PO DAILY SANG Last Admin: 05/20/19 14:27 Dose: 100 mg Barium Sulfate (E-Z-Hd) 100 gm PO ASDIRECTED PRN PRN Reason: RADIOLOGY EXAM Sodium Chloride (Normal Saline) 1,000 mls @ 75 mls/hr IV ASDIRECTED [facility] Last Admin: 05/20/19 14:29 Dose: 75 mls/hr Lorazepam (Ativan) 0.5 mg IVPUSH Q4H PRN PRN Reason: Nausea/Vomiting Magnesium Hydroxide (Milk Of Magnesia) 30 ml PO Q12H PRN PRN Reason: Constipation Melatonin (Melatonin) 9 mg PO BEDTIME [facility] Last Admin: 05/19/19 21:43 Dose: 9 mg Ondansetron HCl (Zofran Odt) 4 mg PO Q6H PRN PRN Reason: Nausea able to take PO Ondansetron HCl (Zofran) 4 mg IV Q6H PRN PRN Reason: Nausea/Vomiting Last Admin: 05/19/19 16:39 Dose: 4 mg Polyethylene Glycol (Miralax) 17 gm PO DAILY PRN PRN Reason: Constipation Senna/Docusate Sodium (Senna Plus) 1 tab PO BID PRN PRN Reason: Constipation Warfarin Sodium (Coumadin) 5 mg PO ONETIME ONE Stop: 05/20/19 16:01 Discontinued Medications Potassium Chloride 20 meq/Lidocaine HCl 2 ml/ Sodium Chloride 112 mls @ 56 mls/ hr IV Q2H [facility] Stop: 05/19/19 20:59 Last Admin: 05/19/19 20:12 Dose: 56 mls/hr Phytonadione 1 mg/ Sodium (Chloride) 50.5 mls @ 100 mls/hr IV ONETIME ONE Stop: 05/19/19 17:30 Last Admin: 05/19/19 17:14 Dose: 100 mls/hr Ceftriaxone Sodium 2 gm/ (Sodium Chloride) 50 mls @ 100 mls/hr IV ONETIME ONE Stop: 05/20/19 09:29 Last Admin: 05/20/19 11:48 Dose: 100 mls/hr Magnesium Hydroxide (Milk Of Magnesia) 30 ml PO Q3H [facility] Stop: 05/20/19 12:31 Last Admin: 05/20/19 14:26 Dose: 30 ml Pantoprazole Sodium (Protonix Iv) 40 mg IV ONETIME ONE Stop: 05/19/19 17:01 Last Admin: 05/19/19 17:14 Dose: 40 mg Propofol (Diprivan 20 Ml) Confirm Administered Dose 200 mg .ROUTE .STK-MED ONE Stop: 05/20/19 07:10 - Exam Quality Assessment: Denies: Supplemental Oxygen General: Reports: Alert, Oriented, Cooperative, No Acute Distress Lungs: Reports: Normal Respiratory Effort GI/Abdominal Exam: Soft, No Distention Extremities: No Pedal Edema Psy/Mental Status: Reports: Alert, Normal Affect *Q Meaningful Use (DIS) - VTE *Q VTE Pharmacological Contraindications *Q: Patient Scheduled Surgery
[2019-05-20] MEDS ORDERED: Warfarin 5 MG Tab PO ONE (16:00)
--- NOTE | 2019-05-20 18:19 | PN ---
DATE OF SERVICE: 05/20/2019 SUBJECTIVE: Mehul Hidalgo is an 88-year-old male, who is n.p.o. He will be having an EGD for persistent nausea and intermittent vomiting. REVIEW OF SYSTEMS: Review of systems is negative for any other pertinent positives and negatives. OBJECTIVE: GENERAL: Mehul Hidalgo is an 88-year-old male. VITAL SIGNS: Height is 5 feet 6.9 inches. Weight is 158 pounds, BMI 24. TPR is 96.1, 81, 14, and blood pressure 117/57. HEENT: Negative. NECK: Supple. HEART: Regular rate and rhythm. LUNGS: Clear. ABDOMEN: Soft and nontender. EXTREMITIES: Negative. ASSESSMENT: 1. Nausea, vomiting. 2. Parkinson disease. 3. BPH. PLAN: EGD scheduled for this morning n.p.o. Orders written. Consent signed per family. We will evaluate p.r.n. or in a.m. Avis Reeves PA-C /[id number]
== END 2019-05-20 16:05 | disposition home health service (06) ==
LOC: JP.ED 10:55 → JP.MS 15:11
PROVIDERS: ADMIT Internal Medicine; ATTEND Internal Medicine
DX: K29.70 Gastritis, unspecified, without bleeding (principal); K29.80 Duodenitis without bleeding; K44.9 Diaphragmatic hernia without obstruction or gangrene; I25.10 Atherosclerotic heart disease of native coronary artery without angina pectoris; I48.2 Chronic atrial fibrillation; I25.9 Chronic ischemic heart disease, unspecified; I25.2 Old myocardial infarction; I12.9 Hypertensive chronic kidney disease with stage 1 through stage 4 chronic kidney disease, or unspecified chronic kidney disease; E11.22 Type 2 diabetes mellitus with diabetic chronic kidney disease; N18.3 Chronic kidney disease, stage 3 (moderate); E87.6 Hypokalemia; E78.00 Pure hypercholesterolemia, unspecified; G20 Parkinson's disease; N40.0 Benign prostatic hyperplasia without lower urinary tract symptoms; R63.4 Abnormal weight loss; Z91.018 Allergy to other foods; Z66 Do not resuscitate; Z86.73 Personal history of transient ischemic attack (TIA), and cerebral infarction without residual deficits; Z79.01 Long term (current) use of anticoagulants; Z79.899 Other long term (current) drug therapy
CPT/HCPCS: 36415; 43239; 74176; 74250; 80048; 80053; 81001; 83690; 84484; 85025; 85027; 85610; 87081; 87086; 87088; 87186; 99285; A9270; C9113; J0696; J2001; J2405; J2704; J3430; J3480; J7030; J7050; 96361; 96365; 96375; G0378

== ENCOUNTER 2019-05-30 16:27 | Emergency (ER) | payer MEDICARE, BC ==
--- NOTE | 2019-05-30 17:35 | EDM.PDOC ---
ED HPI GENERAL MEDICAL PROBLEM - General Chief Complaint: Gastrointestinal Problem Stated Complaint: PAIN Time Seen by Provider: 05/30/19 17:30 Source of Information: Reports: Patient, Family - History of Present Illness INITIAL COMMENTS - FREE TEXT/NARRATIVE: Mehul is an 88 year old male, hx of constipation, presents to the ED today with his and daughter with c/o generalized abdominal pain. Patient had bowel study done on the , was told he has "slow moving bowels", tested positive for e coli, which family reports was treated, patient was discharged home on daily Miralax, daughter reports that since that time patient has had only one or two small hard stools. Patient has had no blood in stool, small emesis today but other rushing has had none. Patient has required enemas int he past for constipation. Patient denies any fever or urinary symptoms. Onset: Today, Gradual Lower Abdominal Pain Score (Numeric/FACES): 7 - Related Data Allergies Allergy/AdvReac Type Severity Reaction Status Date / Time strawberry Allergy Cannot Verified 05/30/19 16:57 Remember Home Meds: Home Meds Nitroglycerin [Nitrostat] 0.4 mg SL ASDIRECTED PRN 08/16/14 [History] Carbidopa/Levodopa [Carbidopa-Levodopa 10-100] 1 tab PO BID 12/07/17 [History] Pindolol 20 mg PO BID 02/07/19 [History] Warfarin [Coumadin] 2.5 mg PO DAILY 02/07/19 [History] Carbidopa/Levodopa [Carbidopa-Levodopa 10-100] 2 tab PO BEDTIME 05/19/19 [ History] Ondansetron [Ondansetron ODT] 4 mg PO Q8H PRN 05/19/19 [History] Polyethylene Glycol 3350 [MiraLAX] 17 gm PO BID #2 cont 05/20/19 [Rx] Past Medical History HEENT History: Reports: Cataract, Hard of Hearing, Impaired Vision, Macular Degeneration, Other (See Below) Other HEENT History: blood vein broke in left eye - getting an injection in eye [place] Cardiovascular History: Reports: Afib, Arrhythmia, Bypass, CAD, High Cholesterol , Hypertension, MS, Other (See Below) Other Cardiovascular History: chronic ischemic heart disease Respiratory History: Reports: Other (See Below) Other Respiratory History: asbestos exposure Gastrointestinal History: Reports: Chronic Constipation, GERD, Other (See Below) Other Gastrointestinal History: ulcers , ecoli 05/2019 Genitourinary History: Reports: Other (See Below), Prostate Disorder, Urinary Incontinence Other Genitourinary History: pain with movement in right kidney area for past 6 months Musculoskeletal History: Reports: Fracture, Gout, Other (See Below), Osteoarthritis Neurological History: Reports: Neuropathy, Diabetic Endocrine/Metabolic History: Reports: Diabetes, Type II Hematologic History: Reports: Anticoagulation Therapy Oncologic (Cancer) History: Reports: Basal Cell Carcinoma, Squamous Cell Carcinoma Dermatologic History: 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 - Infectious Disease History Infectious Disease History: Reports: Chicken Pox, Influenza - Past Surgical History Head Surgeries/Procedures: Reports: None HEENT Surgical History: Reports: None Cardiovascular Surgical History: Reports: Coronary Artery Bypass Respiratory Surgical History: Reports: None GI Surgical History: Reports: Cholecystectomy, Colonoscopy, EGD Endocrine Surgical History: Reports: None Neurological Surgical History: Reports: None Musculoskeletal Surgical History: Reports: Hip Replacement, Other (See Below) Oncologic Surgical History: Reports: None Dermatological Surgical History: Reports: None Social & Family History - Family History Family Medical History: Noncontributory - Tobacco Use Smoking Status *Q: Former Smoker Used Tobacco, but Quit: Yes Month/Year Tobacco Last Used: 1987 Second Hand Smoke Exposure: No - Caffeine Use Caffeine Use: Reports: None Caffeine Use Comment: drinks coffee twice a week - Recreational Drug Use Recreational Drug Use: No - Living Situation & Occupation Living situation: Reports: (lives with Kymberly in [place], [place]. His daughter lives in [place], [place].) Occupation: Retired ED ROS GENERAL - Review of Systems Review Of Systems: ROS reveals no pertinent complaints other than HPI. ED EXAM, GI/ABD - Physical Exam Exam: See Below Exam Limited By: Other (hard of hearing) Eyes: Bilateral: EOMI Throat/Mouth: Normal Oropharynx Head: Atraumatic Neck: Normal Inspection Respiratory/Chest: No Respiratory Distress Cardiovascular: Regular Rate, Rhythm GI/Abdominal Exam: Normal Bowel Sounds, Soft, Tender (generalized, more so to mid lower abdomen). No: Guarding, Rigid, Rebound (Male) Exam: Normal Inspection Extremities: Normal Inspection Neurological: Alert, Oriented Psychiatric: Normal Affect Skin Exam: Warm, Dry, Intact Course - Vital Signs Last Recorded V/S: Last Vital Signs Temp 35.9 C 05/30/19 17:02 Pulse 85 05/30/19 18:01 Resp 16 05/30/19 17:02 BP 150/88 H 05/30/19 18:01 Pulse Ox 95 05/30/19 17:02 Mehul is an 88 year old male, hx of Parkinson's, presents to the ED today with c /o constipation related abdominal pain, arrives here hemodynamically stable and afebrile. patient has soft abdomen, generalized tenderness and good bowel sounds. Abdominal xray reveals no obstruction. Patient given mag citrate here as well as a pink lady enema. patient had very large results and is feeling much better, stable to discharge home with resuming miralax dosing as previously prescribed. Reasons to return to the ED. Patient family agreeable and patient discharged in stable condition. - Orders/Labs/Meds Meds: Medications Discontinued Medications Generic Name Dose Route Start Last Admin Trade Name Datq PRN Reason Stop Dose Admin Sodium Biphosphate/Sodium 0 ml 05/30/19 18:40 05/30/19 20:21 Phosphate 60 ml/ Mineral Oil RECTAL 05/30/19 18:41 1 ml 50 ml/ Docusate Sodium 400 mg/ ONETIME ONE Administration Magnesium Citrate 150 ml Docusate Sodium Confirm 05/30/19 19:21 Colace 50 Mg/5 Ml Liquid Administered 05/30/19 19:22 Dose 400 mg .ROUTE .STK-MED ONE Magnesium Citrate 296 ml 05/30/19 18:43 05/30/19 18:53 Citrate Of Magnesia PO 05/30/19 18:44 296 ml ONETIME ONE Administration Magnesium Citrate Confirm 05/30/19 19:15 Citrate Of Magnesia Administered 05/30/19 19:16 Dose 296 ml .ROUTE .STK-MED ONE Mineral Oil Confirm 05/30/19 19:23 Muri-Lube Administered 05/30/19 19:24 Dose 20 ml .ROUTE .STK-MED ONE Mineral Oil Confirm 05/30/19 19:25 Muri-Lube Administered 05/30/19 19:26 Dose 10 ml .ROUTE .STK-MED ONE Departure - Departure Time of Disposition: 21:00 Disposition: Home, Self-Care 01 Condition: Good Clinical Impression: Slow transit constipation - Discharge Information Instructions: Constipation, Adult Referrals: Rome Russo MD [Primary Care Provider] - Forms: ED Department Discharge Additional Instructions: Continue daily Miralax
[2019-05-30 18:01] VITALS: BP 150/88
--- NOTE | 2019-05-30 18:35 | CRLCR ---
INDICATION: Question of constipation or obstruction. COMPARISON: 05/20/2019 small-bowel series. FINDINGS/IMPRESSION: Small amount of residual contrast within the colon outlining numerous colonic diverticula, and dense residual contrast within the rectum. Nonspecific gas within small bowel loops in the left midabdomen, without significant dilation to suggest bowel obstruction. No free air identified. Cholecystectomy clips. Spinal degenerative changes and right hip arthroplasty, as before. Dictated by Leander Plata MD @ 05/30/2019 6:34:14 PM Dictated by: Leander Plata MD @ 05/30/2019 18:34:59 (Electronically Signed)
[2019-05-30] MEDS ORDERED: Na Phos,M-B/Na Phos,DI-B 60 ML, Mineral Oil 50 ML, Docusate Sodium 400 MG, Magnesium Ci... RECTAL ONE ×4 (18:40)
[2019-05-30] MEDS ORDERED: Magnesium Citrate Solution 296 ML Bottle PO ONE (18:43)
[2019-05-30] MEDS ORDERED: Magnesium Citrate Solution 296 ML Bottle ONE (19:15)
[2019-05-30] MEDS ORDERED: Docusate Sodium Liquid 100 MG/10 ML UD Cup ONE (19:21)
[2019-05-30] MEDS ORDERED: Mineral Oil 10 ML Bottle ONE ×2 (19:23→19:25)
== END 2019-05-30 20:54 | disposition home or self-care (01) ==
LOC: JP.ED 16:27
DX: K59.01 Slow transit constipation (principal)
CPT/HCPCS: 74019; 99284; A9270